=== PATIENT | female | born 1980 | race Two or more races ===

== ENCOUNTER 2016-06-03 09:48 | Emergency (ER) | payer OTHER ==
[~2016-06-03] VITALS: Ht 165.1 cm; Wt 59.0 kg
[~2016-06-03 09:48] MED LIST: CIPRO250 MG ORAL; IBUPROFEN600 MG ORAL; METRONIDAZOLE500 MG ORAL; NKM
--- NOTE | 2016-06-03 10:16 | Emergency Room Report ---
History of Present Illness General Chief Complaint: Female Urogenital Problems Source: Patient Present Illness HPI 35 YO F presents with 2 weeks dysuria, polyuria. Denies fever/chills, flank pain, abd pain, nausea/vomiting/diarrhea. Has had UTI previously, feels similar. Denies discharge. Also endorsing weeks of insomnia, demanding something to help her sleep. Has tried OTC methods already. Denies ETOH, drugs, caffeine. Is exercising, yoga. Understands risks of addiction to benzo. Allergies: Coded Allergies: No Known Allergies (Unverified , 03/25/16) Patient History Past Medical History: other - UTI Past Surgical History: none Pertinent Family History: none Social History: Denies: alcohol use, drug use, smoking Last Menstrual Period: yest Now: No Immunizations: UTD Reviewed Nursing Documentation: PMH: Agreed, PSxH: Agreed Nursing Documentation-PMH Past Medical History: No Stated History Review of Systems All Other Systems: negative except mentioned in HPI Physical Exam Vital Signs Date Time Temp Pulse Resp B/P Pulse Ox O2 Delivery O2 Flow Rate FiO2 06/03/16 09:53 98.1 68 18 92/53 98 Room Air Sp02 EP Interpretation: reviewed, normal General Appearance: normal inspection, well appearing, no apparent distress, alert Head: atraumatic ENT: normal ENT inspection, hearing grossly normal, normal voice Neck: normal inspection, full range of motion, supple, no bony tend Respiratory: normal inspection, lungs clear, normal breath sounds, no respiratory distress, no retraction, no wheezing Cardiovascular #1: regular rate, rhythm, no edema Gastrointestinal: normal inspection, normal bowel sounds, non tender, soft, no guarding, no hernia Genitourinary: no CVA tenderness Musculoskeletal: normal inspection, back normal, normal range of motion, Gio' s Sign negative Neurologic: normal inspection, alert, oriented x3, responsive, file clerk III-XII nml as tested, motor strength/tone normal, speech normal Psychiatric: normal inspection, judgement/insight normal, mood/affect normal Skin: normal inspection, normal color, no rash Medical Decision Making Diagnostic Impression: Primary Impression: Dysuria Additional Impression: Insomnia Qualified Codes: G47.09 - Other insomnia ER Course Dysuria: UA unremarkble. Will Rx Macrobid given symptoms Insomnia: will do trial of low dose ativan 0.5mg at night for 1 week I stressed repeatedly to patient both my concerns for treating a condition like insomnia that should be managed in by a PMD and the potential addictive nature and side effect profile of sleep pills like benzos or ambien but patient is essentially demanding some treatment. Last Vital Signs Date Time Temp Pulse Resp B/P Pulse Ox O2 Delivery O2 Flow Rate FiO2 06/03/16 09:53 98.1 68 18 92/53 98 Room Air Status: improved Disposition: HOME, SELF-CARE Scripts Lorazepam* (ATIVAN*) 0.5 Mg Tablet 0.5 MG ORAL QHS Y for insomnia for 7 Days, #7 TAB Prov: JAMEY NEWBY M.D. 06/03/16 Nitrofurantoin Monohyd/M-Cryst* (MACROBID 100 MG*) 100 Mg Capsule 100 MG ORAL EVERY 12 HOURS for 7 Days, #14 CAP Prov: JAMEY NEWBY M.D. 06/03/16 JAMEY NEWBY M.D. Jun 03, 2016 10:16
[2016-06-03] MEDS ORDERED: ATIVAN0.5 MG ORAL (10:20)
[2016-06-03] MEDS ORDERED: NITROFURANTOIN100 M2 ORAL (10:20)
[2016-06-03 10:45] LABS: APPEARANCE,URINE CLEAR; KETONES,URINE NEGATIVE (NEGATIVE); LEUKOCYTE ESTERASE ,URINE NEGATIVE (NEGATIVE); NITRITE,URINE NEGATIVE (NEGATIVE); PH,URINE 7 (4.5-8.0); PROTEIN,URINE NEGATIVE (NEGATIVE); UROBILINOGEN,URINE NORMAL MG/DL (0.0-1.0)
[2016-06-03 10:55] VITALS: BP 102/65
[2016-06-03 10:58] LABS: BACTERIA,URINE OCCASIONAL /HPF; SQUAMOUS EPITHELIAL CELL,UR OCCASIONAL /LPF (NONE/OCC); WBC,URINE 0-2 /HPF (0 - 2)
== END 2016-06-03 10:55 | disposition home or self-care (01) ==
LOC: EMR 10:19
DX: R30.0 Dysuria (principal); G47.00 Insomnia, unspecified; Z87.440 Personal history of urinary (tract) infections
CPT/HCPCS: 81003; 81025; 99284

== ENCOUNTER 2016-06-05 16:04 | Emergency (ER) | payer OTHER ==
[~2016-06-05] VITALS: Ht 165.1 cm; Wt 59.0 kg
[~2016-06-05 16:04] MED LIST changes: +ATIVAN0.5 MG ORAL; +NITROFURANTOIN100 M2 ORAL
[2016-06-05 16:28] VITALS: BP 107/62
[2016-06-05 17:31] LABS: APPEARANCE,URINE CLEAR; KETONES,URINE NEGATIVE (NEGATIVE); LEUKOCYTE ESTERASE ,URINE NEGATIVE (NEGATIVE); NITRITE,URINE NEGATIVE (NEGATIVE); PROTEIN,URINE NEGATIVE (NEGATIVE); UROBILINOGEN,URINE NORMAL MG/DL (0.0-1.0)
[2016-06-05] MEDS ORDERED: CORTISPORIN EAR10 ML LEFT EAR (17:59)
[2016-06-05 18:10] VITALS: BP 107/62
--- NOTE | 2016-06-05 21:51 | Emergency Room Report ---
History of Present Illness General Chief Complaint: Earache Source: Patient Present Illness HPI The patient is a 35-year-old female presenting with left ear pain which began yesterday. This pain is described as an 8/10 sharp sensation and does not radiate. Pain worse with touch. The patient denies any changes in hearing or discharge. The patient does admit to cleaning out the ear with Q-tips. The patient also admits to increased clear/white vaginal discharge. The patient denies any other symptoms including N, V, F, chills, cough, dysuria , hematuria, flank pain, increased urinary frequency Allergies: Coded Allergies: No Known Allergies (Unverified , 03/25/16) Patient History Past Medical History: see triage record Pertinent Family History: none Last Menstrual Period: 06/04/16 Now: No Reviewed Nursing Documentation: PMH: Agreed, PSxH: Agreed Nursing Documentation-PMH Past Medical History: No Stated History Review of Systems All Other Systems: negative except mentioned in HPI Physical Exam Vital Signs Date Time Temp Pulse Resp B/P Pulse Ox O2 Delivery O2 Flow Rate FiO2 06/05/16 16:22 98.1 66 16 107/62 99 Room Air Sp02 EP Interpretation: reviewed, normal General Appearance: no apparent distress, alert, GCS 15, non-toxic Head: normocephalic, atraumatic Eyes: bilateral eye PERRL, bilateral eye normal inspection ENT: normal voice, uvula midline, moist mucus membranes, tonsillar swelling, pharyngeal erythema, tonsillar exudate, other - L EAC is erythematous and edematous Neck: full range of motion, supple/symm/no masses Respiratory: chest non-tender, lungs clear, normal breath sounds, speaking full sentences Cardiovascular #1: regular rate, rhythm, no edema Gastrointestinal: normal bowel sounds, non tender, soft, non-distended, no guarding, no rebound Musculoskeletal: back normal, gait/station normal, normal range of motion, non- tender Neurologic: alert, oriented x3, responsive, motor strength/tone normal, sensory intact, speech normal Psychiatric: judgement/insight normal, memory normal, mood/affect normal, no suicidal/homicidal ideation Skin: normal color, no rash, warm/dry, well hydrated Lymphatic: no adenopathy Medical Decision Making PA Attestation Dr. Ken is my supervising physician. Patient management was discussed with my supervising physician Diagnostic Impression: Primary Impression: Otitis externa of left ear ER Course The patient is a 35-year-old female presenting with left ear pain which began yesterday Differential diagnosis include but not limited to otitis externa, otitis media, mastoiditis, sinusitis, pharyngitis Differential diagnosis considered but not limited to: UTI, vaginitis, pyelonephritis, PE: vitals WNL. NAD L EAC: erythema and edema. TTP over tragus. TM intact, no erythema. Abd is soft and non tender. Normal BS UA unremarkable. The patient will be treated for otitis externa. Patient told to stop using Q tips. ER precautions are given Laboratory Tests Test 06/05/16 17:05 Urine Color Yellow Urine Appearance Clear Urine pH 6.0 (4.5-8.0) Urine Specific [place] 1.015 (1.005-1.035) Urine Protein Negative (NEGATIVE) Urine Glucose (UA) Negative (NEGATIVE) Urine Ketones Negative (NEGATIVE) Urine Occult Blood Negative (NEGATIVE) Urine Nitrite Negative (NEGATIVE) Urine Bilirubin Negative (NEGATIVE) Urine Urobilinogen Normal MG/DL (0.0-1.0) Urine Leukocyte Esterase Negative (NEGATIVE) Urine HCG, Qualitative Negative Lab Results Impression Unremarkable urinalysis Last Vital Signs Date Time Temp Pulse Resp B/P Pulse Ox O2 Delivery O2 Flow Rate FiO2 06/05/16 16:28 98.1 66 16 107/62 99 Room Air Status: improved Disposition: HOME, SELF-CARE Condition: Improved Scripts Neomycin/Polymyxin B Sulf/Hc* (CORTISPORIN EAR SOLUTION*) 10 Ml Solution 4 DROP LEFT EAR QID, #10 ML 0 Refills Prov: GERARD ANDERSON 06/05/16 Patient Instructions: Otitis Externa Additional Instructions: I discussed my findings with the patient. All questions and concerns have been answered. Treatment and medication compliance have been addressed. I advised the patient that they need to follow up with PMD in 3-5 days. Return to ED if symptoms worsen, new symptoms arise, or if needed for any reason. Patient verbalized understanding of discharge instructions. GERARD ANDERSON Jun 05, 2016 21:51
== END 2016-06-05 18:10 | disposition home or self-care (01) ==
LOC: EMR 17:53
DX: H60.92 Unspecified otitis externa, left ear (principal)
CPT/HCPCS: 81003; 81025; 99283

== ENCOUNTER 2016-07-01 12:41 | Emergency (ER) | payer OTHER ==
[~2016-07-01] VITALS: Ht 165.1 cm; Wt 59.0 kg
[~2016-07-01 12:41] MED LIST changes: +CORTISPORIN EAR10 ML LEFT EAR
[2016-07-01] MEDS ORDERED: METROGEL60 GM TP (13:17)
[2016-07-01 13:25] VITALS: BP 105/68
[2016-07-01 13:28] LABS: APPEARANCE,URINE SLIGHTLY CLOUDY; KETONES,URINE NEGATIVE (NEGATIVE); LEUKOCYTE ESTERASE ,URINE 1+ (NEGATIVE); NITRITE,URINE POSITIVE (NEGATIVE); PH,URINE 8 (4.5-8.0); PROTEIN,URINE NEGATIVE (NEGATIVE); UROBILINOGEN,URINE NORMAL MG/DL (0.0-1.0)
[2016-07-01] MEDS ORDERED: ZYRTEC10 MG ORAL (13:28)
[2016-07-01 13:41] LABS: BACTERIA,URINE MODERATE /HPF; RBC,URINE 0-2 /HPF (0 - 2); SQUAMOUS EPITHELIAL CELL,UR FEW /LPF (NONE/OCC)
--- NOTE | 2016-07-01 15:02 | Emergency Room Report ---
History of Present Illness General Chief Complaint: Female Urogenital Problems Source: Patient Present Illness HPI Patient is a 35-year-old female who presented after having increased dysuria and discharge. Patient reported having a fishy odor. She denied any severe abdominal pain. She gradual onset of symptoms. Patient denied any fever. Patient recently been treated for urinary tract infection with Macrobid. She had not been vomiting. Allergies: Coded Allergies: No Known Allergies (Unverified , 03/25/16) Patient History Past Medical History: see triage record Last Menstrual Period: 06/30/2016 Reviewed Nursing Documentation: PMH: Agreed, PSxH: Agreed Nursing Documentation-PMH Past Medical History: No Stated History Review of Systems All Other Systems: negative except mentioned in HPI Physical Exam Vital Signs Date Time Temp Pulse Resp B/P Pulse Ox O2 Delivery O2 Flow Rate FiO2 07/01/16 12:52 97.3 77 16 105/68 99 Room Air Sp02 EP Interpretation: reviewed, normal General Appearance: normal inspection, well appearing, no apparent distress, alert, GCS 15, non-toxic Head: atraumatic ENT: normal ENT inspection, hearing grossly normal, normal voice Neck: normal inspection, full range of motion, supple, no bony tend Respiratory: normal inspection, lungs clear, normal breath sounds, no respiratory distress, no retraction, no wheezing Cardiovascular #1: regular rate, rhythm, no edema Gastrointestinal: normal inspection, normal bowel sounds, non tender, soft, no guarding, no hernia Genitourinary: no CVA tenderness Musculoskeletal: normal inspection, back normal, normal range of motion Neurologic: normal inspection, alert, oriented x3, responsive, senior construction project manager III-XII nml as tested, speech normal Psychiatric: normal inspection, judgement/insight normal, mood/affect normal Skin: normal inspection, normal color, no rash Medical Decision Making Diagnostic Impression: Primary Impression: BV (bacterial vaginosis) Additional Impression: Seasonal allergies ER Course Patient presented for vaginal odor. 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 Patient declined pelvic exam. Urine test was negative.The patient is advised to follow up with primary care doctor in 1- 2 days. Patient is advised to return if any worsening condition or if any changes in status that are concerning. Labs Test 07/01/16 12:59 Urine Color Pale yellow Urine Appearance Slightly cloudy Urine pH 8 (4.5-8.0) Urine Specific [place] 1.010 (1.005-1.035) Urine Protein Negative (NEGATIVE) Urine Glucose (UA) Negative (NEGATIVE) Urine Ketones Negative (NEGATIVE) Urine Occult Blood 1+ (NEGATIVE) Urine Nitrite Positive (NEGATIVE) Urine Bilirubin Negative (NEGATIVE) Urine Urobilinogen Normal MG/DL (0.0-1.0) Urine Leukocyte Esterase 1+ (NEGATIVE) Urine RBC 0-2 /HPF (0 - 2) Urine WBC 2-4 /HPF (0 - 2) Urine Squamous Epithelial Cells Few /LPF (NONE/OCC) Urine Bacteria Moderate /HPF (NONE) Urine HCG, Qualitative Negative Last Vital Signs Date Time Temp Pulse Resp B/P Pulse Ox O2 Delivery O2 Flow Rate FiO2 07/01/16 13:25 97.3 16 105/68 99 Room Air 07/01/16 12:52 77 Status: improved Disposition: HOME, SELF-CARE Condition: Stable Scripts Cetirizine Hcl* (ZYRTEC*) 10 Mg Tablet 10 MG ORAL DAILY for nasal congestion, #30 TAB 0 Refills Prov: Dion Ken 07/01/16 Metronidazole (METROGEL) 60 Gm Gel..gram. 60 GM TP TWICE A DAY, #60 GM Prov: Dion Ken 07/01/16 Referrals: NOT CHOSEN IPA/,REFERRING (PCP) Patient Instructions: Vaginitis Dion Ken Jul 01, 2016 15:02
== END 2016-07-01 13:25 | disposition home or self-care (01) ==
LOC: EMR 13:16
DX: N76.0 Acute vaginitis (principal); J30.2 Other seasonal allergic rhinitis
CPT/HCPCS: 81003; 81025; 87086; 87181; 99284

== ENCOUNTER 2016-07-28 16:52 | Emergency (ER) | payer OTHER ==
[~2016-07-28] VITALS: Ht 165.1 cm; Wt 59.0 kg
[~2016-07-28 16:52] MED LIST changes: +METROGEL60 GM TP; +ZYRTEC10 MG ORAL
[2016-07-28 17:14] VITALS: BP 92/61
[2016-07-28 17:54] LABS: APPEARANCE,URINE CLEAR; KETONES,URINE NEGATIVE (NEGATIVE); LEUKOCYTE ESTERASE ,URINE 3+ (NEGATIVE); NITRITE,URINE NEGATIVE (NEGATIVE); PH,URINE 7 (4.5-8.0); PROTEIN,URINE NEGATIVE (NEGATIVE); UROBILINOGEN,URINE NORMAL MG/DL (0.0-1.0)
[2016-07-28 18:13] VITALS: BP 113/67
[2016-07-28] MEDS ORDERED: CEPHALEXIN500 MG ORAL (18:15)
[2016-07-28 18:23] LABS: RBC,URINE 0-2 /HPF (0 - 2)
[2016-07-28 18:24] LABS: BACTERIA,URINE OCCASIONAL /HPF; SQUAMOUS EPITHELIAL CELL,UR OCCASIONAL /LPF (NONE/OCC)
--- NOTE | 2016-07-28 20:26 | Emergency Room Report ---
History of Present Illness General Chief Complaint: Female Urogenital Problems Source: Patient Present Illness [facility] The patient is a 36-year-old female with a history of frequent urinary tract infections presenting for dysuria and increased urinary frequency for the past week. Patient states pain is a 4/10 burning sensation which occurs only with urination. Pain does not radiate. Patient denies any vaginal discharge, hematuria, flank pain, abdominal pain, nausea, vomiting, fever, chills Allergies: Coded Allergies: No Known Allergies (Unverified , 03/25/16) Patient History Past Medical History: see triage record Pertinent Family History: none Last Menstrual Period: 07/05/16 Now: No Reviewed Nursing Documentation: PMH: Agreed, PSxH: Agreed Nursing Documentation-PMH Past Medical History: No Stated History Review of Systems All Other Systems: negative except mentioned in HPI Physical Exam Vital Signs Date Time Temp Pulse Resp B/P Pulse Ox O2 Delivery O2 Flow Rate FiO2 07/28/16 17:08 97.9 69 15 92/61 100 Room Air Sp02 EP Interpretation: reviewed, normal General Appearance: no apparent distress, alert, GCS 15, non-toxic Head: normocephalic, atraumatic Eyes: bilateral eye PERRL, bilateral eye normal inspection ENT: hearing grossly normal, normal pharynx, no angioedema, normal voice Neck: full range of motion, supple/symm/no masses Gastrointestinal: normal bowel sounds, non tender, soft, non-distended, no guarding, no rebound Genitourinary: normal inspection, no CVA tenderness Musculoskeletal: back normal, gait/station normal, normal range of motion, non- tender Neurologic: alert, oriented x3, responsive, motor strength/tone normal, sensory intact, speech normal Skin: normal color, no rash, warm/dry, well hydrated Lymphatic: no adenopathy Medical Decision Making PA Attestation Dr. Carrington is my supervising physician. Patient management was discussed with my supervising physician Diagnostic Impression: Primary Impression: Urinary tract infection ER Course The patient is a 36-year-old female Presenting for possible UTI Differential diagnosis considered but not limited to: UTI, vaginitis, pyelonephritis, PID, PE: Vitals WNL. NAD. Abdomen: Normal appearance. Non distended. No ecchymosis. Normal BS. Non TTP. No McBurney point tenderness. No guarding. No CVA tenderness UA: 3+ leukocyte esterase with 2-4 WBCs and few bacteria Neg preg The patient will be discharged home with a prescription for Keflex. The patient is advised that she needs to follow up with [facility] due to recurrent infections. ER precautions are given Laboratory Tests Test 07/28/16 17:12 Urine Color Pale yellow Urine Appearance Clear Urine pH 7 (4.5-8.0) Urine Specific [place] 1.010 (1.005-1.035) Urine Protein Negative (NEGATIVE) Urine Glucose (UA) Negative (NEGATIVE) Urine Ketones Negative (NEGATIVE) Urine Occult Blood Negative (NEGATIVE) Urine Nitrite Negative (NEGATIVE) Urine Bilirubin Negative (NEGATIVE) Urine Urobilinogen Normal MG/DL (0.0-1.0) Urine Leukocyte Esterase 3+ (NEGATIVE) H Urine RBC 0-2 /HPF (0 - 2) Urine WBC 2-4 /HPF (0 - 2) Urine Squamous Epithelial Cells Occasional /LPF Urine Bacteria Occasional /HPF (NONE) Urine HCG, Qualitative Negative Lab Results Impression UA: 3+ leukocyte esterase with 2-4 WBCs and few bacteria Last Vital Signs Date Time Temp Pulse Resp B/P Pulse Ox O2 Delivery O2 Flow Rate FiO2 07/28/16 18:13 97.9 15 113/67 100 Room Air 07/28/16 17:08 69 Status: improved Disposition: HOME, SELF-CARE Condition: Improved Scripts Cephalexin* (KEFLEX*) 500 Mg Capsule 500 MG ORAL EVERY 6 HOURS, #28 CAP Prov: GERARD ANDERSON 07/28/16 Referrals: NOT CHOSEN IPA/MD,REFERRING (PCP) Patient Instructions: Urinary Tract Infection Additional Instructions: I discussed my findings with the patient. All questions and concerns have been answered. Treatment and medication compliance have been addressed. I advised the patient that they need to follow up with PMD in 3-5 days. Return to ED if symptoms worsen, new symptoms arise, or if needed for any reason. Patient verbalized understanding of discharge instructions. The patient is advised that she needs to follow up with [facility] due to the frequency of urinary tract infections GERARD ANDERSON Jul 28, 2016 20:26
== END 2016-07-28 18:23 | disposition home or self-care (01) ==
LOC: EMR 17:35
DX: N39.0 Urinary tract infection, site not specified (principal)
CPT/HCPCS: 81003; 81025; 99283

== ENCOUNTER 2016-08-06 16:55 | Emergency (ER) | payer OTHER ==
[~2016-08-06] VITALS: Ht 165.1 cm; Wt 61.2 kg
[~2016-08-06 16:55] MED LIST changes: +CEPHALEXIN500 MG ORAL
[2016-08-06 17:18] VITALS: BP 105/63
[2016-08-06] MEDS ORDERED: PROMETHAZINE-D118 ML ORAL (17:42)
[2016-08-06] MEDS ORDERED: PROAIR HFA8.5 GM INH (17:42)
[2016-08-06] MEDS ORDERED: ZITHROMAX250 MG ORAL (17:42)
[2016-08-06 17:51] VITALS: BP 105/63
--- NOTE | 2016-08-06 18:50 | Emergency Room Report ---
History of Present Illness General Chief Complaint: Upper Respiratory Illness Source: Patient (GERARD ANDERSON) Present Illness HPI The patient is a 36-year-old female who has a medical history presenting for one week of subjective fevers and persistent cough. The patient denies any sick contacts or recent travel. Patient states that cough is mostly dry but occasionally produces green sputum. The patient has tried [id number] cough medications which have not helped. The patient denies any other symptoms including N, V, night sweats, AMEZQUITA, sore throat, nasal congestion, rash, abd pain , SOB (GERARD ANDERSON) Allergies: Coded Allergies: No Known Allergies (Unverified , 03/25/16) Patient History Past Medical History: see triage record Pertinent Family History: none Last Menstrual Period: 08/05/16 Now: No Reviewed Nursing Documentation: PMH: Agreed, PSxH: Agreed (GERARD ANDERSON) Nursing Documentation-PMH Past Medical History: No Stated History (GERARD ANDERSON) Review of Systems All Other Systems: negative except mentioned in HPI (GERARD ANDERSON) Physical Exam Vital Signs Date Time Temp Pulse Resp B/P Pulse Ox O2 Delivery O2 Flow Rate FiO2 08/06/16 17:12 98.2 69 16 105/63 98 Room Air Sp02 EP Interpretation: reviewed, normal General Appearance: no apparent distress, alert, GCS 15, non-toxic Head: normocephalic, atraumatic Eyes: bilateral eye PERRL, bilateral eye normal inspection ENT: hearing grossly normal, normal pharynx, no angioedema, normal voice Neck: full range of motion, supple/symm/no masses Respiratory: no accessory muscle use, wheezing, other - persistant cough Cardiovascular #1: regular rate, rhythm, no edema Gastrointestinal: normal bowel sounds, non tender, soft, non-distended, no guarding, no rebound Musculoskeletal: back normal, gait/station normal, normal range of motion, non- tender Neurologic: alert, oriented x3, responsive, motor strength/tone normal, sensory intact, speech normal Psychiatric: judgement/insight normal, memory normal, mood/affect normal, no suicidal/homicidal ideation Skin: normal color, no rash, warm/dry, well hydrated Lymphatic: no adenopathy (GERARD ANDERSON) Medical Decision Making PA Attestation Dr. Newby is my supervising physician. Patient management was discussed with my supervising physician (GERARD ANDERSON) Diagnostic Impression: Primary Impression: Bronchitis ER Course The patient is a 36-year-old female who has a medical history presenting for one week of subjective fevers and persistent cough Differential diagnosis include but not limited to pharyngitis, sinusitis, AOM, bronchitis, PNA PE: No apparent distress. afebrile. No TTP over maxillary or frontal sinuses. Lungs CTA bilat. + bilat diffuse wheezing. No accessory muscle use. Heart: RRR, no abnormal heart sounds Ears: external auditory canal clear. Non erythematous. Bilat TM intact. Cone of light present bilat. No bulging of TM. No serous fluid seen. No cervical lymphad No tonsillar exudate. Uvula midline.Oropharynx non erythematous The patient declines any medications in the ER and chest x-ray. The patient will be treated with a prescription for albuterol and cough medication and will FU with PMD. ER precautions given (GERARD ANDERSON) ER Course I evaluated this patient in the ED at [facility] with my advanced practice provider (Physician Thermostat Machine Tender) colleague, who practices under my general supervision. My impressions concur with the advanced practice provider in regards to their obtained history of present illness, physical exam, general management, diagnosis, and disposition. In particular, I agree with PA-obtained interpretation of imaging, rhythm strip. For the evening and overnight shifts, we do not have the benefit of an in-house Radiologist to review xrays so our interpretation may be limited. Patients are to be discharged only with normal vital signs (or if we discussed a particular exception), a plan for follow-up care, and understand to return to the ED for worsening symptoms. Please see midlevel healthcare providers note for further details. (JAMEY NEWBY M.D.) Last Vital Signs Date Time Temp Pulse Resp B/P Pulse Ox O2 Delivery O2 Flow Rate FiO2 08/06/16 17:51 98.2 69 16 105/63 98 Room Air Status: improved (GERARD ANDERSON.[place]) Disposition: HOME, SELF-CARE Condition: Improved Scripts D-Methorphan Hb/Prometh Hcl* (PROMETHAZINE-DM SYRUP*) 118 Ml Syrup 5 ML ORAL Q6H Y for For Cough, #118 ML 0 Refills Prov: GERARD ANDERSON 08/06/16 Albuterol Sulfate* (PROAIR HFA*) 8.5 Gm Hfa.aer.ad 2 PUFFS INH Q6H, #8.5 GM 0 Refills Prov: GERARD ANDERSON 08/06/16 Referrals: NON PHYSICIAN (PCP) Patient Instructions: Acute Bronchitis Additional Instructions: I discussed my findings with the patient. All questions and concerns have been answered. Treatment and medication compliance have been addressed. I advised the patient that they need to follow up with PMD in 3-5 days. Return to ED if pain remains or worsens, cough worsens or remains, you notice blood in your sputum, you notice wheezing, you experience a fever, or if needed for any reason. Patient verbalized understanding of discharge instructions. GERRAD ANDERSON Aug 06, 2016 18:50 JAMEY NEWBY M.D. Aug 07, 2016 14:30
== END 2016-08-06 17:52 | disposition home or self-care (01) ==
LOC: EMR 17:37
DX: J40 Bronchitis, not specified as acute or chronic (principal)
CPT/HCPCS: 99284

== ENCOUNTER 2016-10-13 21:08 | Emergency (ER) | payer OTHER ==
[~2016-10-13] VITALS: Ht 165.1 cm; Wt 56.7 kg
[~2016-10-13 21:08] MED LIST changes: +PROAIR HFA8.5 GM INH; +PROMETHAZINE-D118 ML ORAL; +ZITHROMAX250 MG ORAL
--- NOTE | 2016-10-13 21:29 | Emergency Room Report ---
History of Present Illness General Chief Complaint: Pelvic Pain Source: Patient Present Illness HPI Is a 36-year-old female with no past medical history. Patient said she has not had her menstrual flow for the last month and a half. She check her urine 3 days ago it was positive. She come in because she has some mild suprapubic cramping. Denies any fever chills denies any bleeding. No nausea no vomiting. This is her first . She wanted blood test for confirmation. No history of STD. Allergies: Coded Allergies: No Known Allergies (Unverified , 03/25/16) Patient History Past Medical History: none Past Surgical History: none Pertinent Family History: none Social History: Denies: drug use Last Menstrual Period: 1 month and half Now: Yes Immunizations: other Reviewed Nursing Documentation: PMH: Agreed, PSxH: Agreed Nursing Documentation-PMH Past Medical History: No Stated History Review of Systems Eye: Denies: blurred vision, eye pain ENT: Denies: ear pain, nose congestion, throat swelling Respiratory: Denies: cough, shortness of breath Cardiovascular: Denies: chest pain, palpitations Gastrointestinal: Denies: abdominal pain, diarrhea, nausea, vomiting Musculoskeletal: Denies: back pain, joint pain Skin: Denies: rash Neurological: Denies: headache, numbness Endocrine: Denies: increased thirst, increased urine Hematologic/Lymphatic: Denies: easy bruising All Other Systems: negative except mentioned in HPI Physical Exam Vital Signs Date Time Temp Pulse Resp B/P Pulse Ox O2 Delivery O2 Flow Rate FiO2 10/13/16 21:14 99.1 94 16 101/63 100 Room Air vitals normal Sp02 EP Interpretation: reviewed, normal General Appearance: well appearing, no apparent distress, alert Head: normocephalic, atraumatic Eyes: bilateral eye EOMI, bilateral eye PERRL ENT: hearing grossly normal, normal pharynx Neck: full range of motion, supple, no meningismus Respiratory: chest non-tender, lungs clear, normal breath sounds Cardiovascular #1: regular rate, rhythm, no murmur Gastrointestinal: normal bowel sounds, non tender, no mass, no organomegaly, no bruit, non-distended Musculoskeletal: back normal, gait/station normal, normal range of motion Psychiatric: mood/affect normal Skin: warm/dry Medical Decision Making Diagnostic Impression: Primary Impression: Qualified Codes: Z3A.01 - Less than 8 weeks gestation of ER Course Patient presents with early . Most likely 4-5 weeks based on the hCG level. She has no pain. No bleeding. I doubt that this is an ectopic . She was more concerned getting a blood test for confirmation. We' ll discharge home. Last Vital Signs Date Time Temp Pulse Resp B/P Pulse Ox O2 Delivery O2 Flow Rate FiO2 10/13/16 21:14 99.1 94 16 101/63 100 Room Air Status: unchanged Disposition: HOME, SELF-CARE Condition: Stable Additional Instructions: Followup with your Dr. for referral to see SALES AMBASSADOR. You may also followup with [facility]. Return if having pain or bleeding. DIANA MONTOYA M.D. Oct 13, 2016 21:29
[2016-10-13 21:54] LABS: APPEARANCE,URINE CLEAR; KETONES,URINE 3+ (NEGATIVE); LEUKOCYTE ESTERASE ,URINE NEGATIVE (NEGATIVE); NITRITE,URINE NEGATIVE (NEGATIVE); PH,URINE 7 (4.5-8.0); PROTEIN,URINE 2+ (NEGATIVE); UROBILINOGEN,URINE NORMAL MG/DL (0.0-1.0)
[2016-10-13 22:00] VITALS: BP 101/63
[2016-10-13 22:08] LABS: BACTERIA,URINE FEW /HPF; RBC,URINE 0-2 /HPF (0 - 2); SQUAMOUS EPITHELIAL CELL,UR FEW /LPF (NONE/OCC); WBC,URINE 0-2 /HPF (0 - 2)
[2016-10-13 23:08] VITALS: BP 101/63
== END 2016-10-13 23:08 | disposition home or self-care (01) ==
LOC: EMR 22:09
DX: O26.891 Other specified pregnancy related conditions, first trimester (principal); Z3A.08 8 weeks gestation of pregnancy; R10.30 Lower abdominal pain, unspecified
CPT/HCPCS: 36415; 81003; 81025; 84702; 99283

== ENCOUNTER 2017-01-18 14:37 | Emergency (ER) | payer OTHER ==
[~2017-01-18] VITALS: Ht 162.6 cm; Wt 54.4 kg
[2017-01-18] MEDS ORDERED: Tylenol #3 tab (300mg/30mg) ORAL ONE (15:15)
[2017-01-18 15:50] LABS: KETONES,URINE 1+ (NEGATIVE); LEUKOCYTE ESTERASE ,URINE NEGATIVE (NEGATIVE); NITRITE,URINE NEGATIVE (NEGATIVE); PH,URINE 7 (4.5-8.0); PROTEIN,URINE NEGATIVE (NEGATIVE); UROBILINOGEN,URINE NORMAL MG/DL (0.0-1.0)
[2017-01-18 16:00] LABS: APPEARANCE,URINE CLEAR
[2017-01-18 16:13] VITALS: BP 100/65
[2017-01-18 16:16] VITALS: BP 100/65
[2017-01-18] MEDS ORDERED: TRAMADOL HCL50 MG ORAL (16:35)
--- NOTE | 2017-01-18 16:54 | Diagnostic Imaging Report ---
Indication: Pelvic pain, negative urine test Technique: Transabdominal and transvaginal images Comparison: None Findings: Uterus measures 7.1 cm length by 3.7 cm AP. The endometrium measures 10 mm thick. There are multiple small myometrial fibroids demonstrated, measuring up to 21 mm long axis dimension. The right ovary measures 3.7 cm length. The left ovary measures 4.1 cm length. Within the left ovary, there is a 2.8 cm hemorrhagic follicle. There is free fluid in the cul-de-sac. Impression: Multiple small uterine fibroids 2.8 cm ovarian hemorrhagic follicle Small amount free pelvic fluid
--- NOTE | 2017-01-18 18:42 | Emergency Room Report ---
History of Present Illness General Chief Complaint: Pelvic Pain Source: Patient Present Illness HPI 36-year-old female presents to ED for evaluation. States for the last several days she's been having lower abdominal pain. States pain is a 10/10, throbbing , nonradiating. Patient states pain is worse with sexual intercourse. Denies dysuria or hematuria. Denies vaginal bleeding or discharge. No other aggravating relieving factors. Denies any other associated symptoms Allergies: Coded Allergies: No Known Allergies (Unverified , 03/25/16) Patient History Past Medical History: none Past Surgical History: none Pertinent Family History: none Social History: Denies: smoking, alcohol use, drug use Last Menstrual Period: 12/30/16 Now: No : 1 Para: 0 Immunizations: UTD Reviewed Nursing Documentation: PMH: Agreed, PSxH: Agreed Nursing Documentation-PMH Past Medical History: No Stated History Review of Systems All Other Systems: negative except mentioned in HPI Physical Exam Vital Signs Date Time Temp Pulse Resp B/P (MAP) Pulse Ox O2 Delivery O2 Flow Rate FiO2 01/18/17 14:43 98.2 69 20 100/65 97 Room Air Sp02 EP Interpretation: reviewed, normal General Appearance: no apparent distress, alert, GCS 15, non-toxic Head: normocephalic, atraumatic Eyes: bilateral eye normal inspection, bilateral eye PERRL ENT: hearing grossly normal, normal pharynx, no angioedema, normal voice Neck: full range of motion, supple/symm/no masses Respiratory: chest non-tender, lungs clear, normal breath sounds, speaking full sentences Cardiovascular #1: regular rate, rhythm, no edema Cardiovascular #2: 2+ carotid (R), 2+ carotid (L), 2+ radial (R), 2+ radial (L) , 2+ dorsalis pedis (R), 2+ dorsalis pedis (L) Gastrointestinal: normal bowel sounds, soft, non-distended, no guarding, no rebound, tenderness - suprapubic Rectal: deferred Genitourinary: normal inspection, no CVA tenderness Musculoskeletal: back normal, gait/station normal, normal range of motion, non- tender Neurologic: alert, oriented x3, responsive, motor strength/tone normal, sensory intact, speech normal Psychiatric: judgement/insight normal, memory normal, mood/affect normal, no suicidal/homicidal ideation Reflexes: 3+ bicep (R), 3+ bicep (L), 3+ tricep (R), 3+ tricep (L), 3+ knee (R) , 3+ knee (L) Skin: normal color, no rash, warm/dry, well hydrated Lymphatic: no adenopathy Medical Decision Making Diagnostic Impression: Primary Impression: Fibroids Qualified Codes: D25.9 - Leiomyoma of uterus, unspecified ER Course Hospital Course 36-year-old female presents to ED complaining of lower abdominal pain Differential diagnoses include: gastrits, gastroenterits, ectopic , ovarian torsion/cyst, UTI Clinical course Patient placed on stretcher in ED. After initial history and physical I ordered labs, IV fluids and pain meds and pelvic ultrasound. Labs-no leukocytosis, electrolytes okay, beta hCG negative, UA negative Pelvic ultrasound- fibroids, L ovary hemorrhagic follicle I discussed findings with the patient. Recommend followup with [facility] TECHNICIAN. We'll prescribe pain medication and meanwhile Diagnosis - fibroids Stable and discharged to home with Rx Tramadol. Followup with PMD/[facility] NETWORK TECHNICIAN. Return to ED if symptoms recur or worsen Labs Test 01/18/17 15:00 Urine Color Pale yellow Urine Appearance Clear Urine pH 7 (4.5-8.0) Urine Specific [place] 1.010 (1.005-1.035) Urine Protein Negative (NEGATIVE) Urine Glucose (UA) Negative (NEGATIVE) Urine Ketones 1+ (NEGATIVE) Urine Occult Blood Negative (NEGATIVE) Urine Nitrite Negative (NEGATIVE) Urine Bilirubin Negative (NEGATIVE) Urine Urobilinogen Normal MG/DL (0.0-1.0) Urine Leukocyte Esterase Negative (NEGATIVE) Urine HCG, Qualitative Negative CT/MRI/US Diagnostic Results CT/MRI/US Diagnostic Results : Imaging Test Ordered: Pelvic US Impression multiple small uterine fibroids, 2.8cm ovarian hemorrhagic follicle L ovary. + free fluid Last Vital Signs Date Time Temp Pulse Resp B/P (MAP) Pulse Ox O2 Delivery O2 Flow Rate FiO2 01/18/17 16:16 98.2 68 20 100/65 97 Room Air Status: improved Disposition: HOME, SELF-CARE Condition: Stable Scripts Tramadol Hcl* (ULTRAM*) 50 Mg Tablet 50 MG ORAL Q6H Y for For Pain, #30 TAB 0 Refills Prov: JOSE R PLASCENCIA M.D. 01/18/17 Patient Instructions: Uterine Fibroids, [id number] JOSE R PLASCENCIA M.D. Jan 18, 2017 18:42
== END 2017-01-18 16:39 | disposition home or self-care (01) ==
LOC: EMR 16:00
DX: D25.9 Leiomyoma of uterus, unspecified (principal); R10.2 Pelvic and perineal pain; N94.10 Unspecified dyspareunia
CPT/HCPCS: 76830; 76856; 81003; 81025; 99283

== ENCOUNTER 2017-01-25 13:36 | Emergency (ER) | payer OTHER ==
[~2017-01-25] VITALS: Ht 165.1 cm; Wt 56.7 kg
[~2017-01-25 13:36] MED LIST changes: +TRAMADOL HCL50 MG ORAL
[2017-01-25 14:04] VITALS: BP 105/67
[2017-01-25] MEDS ORDERED: Ketorolac 60mg Inj IM ONE (14:30)
--- NOTE | 2017-01-25 14:41 | Emergency Room Report ---
History of Present Illness General Chief Complaint: Neck Pain Source: Patient Present Illness HPI 36-year-old female presents to the emergency department with acute onset of 10 out of 10 in severity right-sided neck and upper back pain that she describes as tight and sharp in nature. Patient states acute onset after turning her head quickly to the right while in the shower this morning. She denies previous injury to the neck she denies previous episodes of similar symptoms she denies recent illness. Denies nausea , vomiting, or weakness in the upper or lower extremities. Denies headache, fevers, chills, recent spinal procedure, night sweats, history of cancer. Denies appreciable trauma or fall. Denies numbness tingling or loss of sensation or gross motor movements of the extremities, incontinence of bowel or bladder. Denies CP, Palpitations, LOC, AMS , dizziness, Changes in Vision, Sensation, paresthesias, or a sudden severe headache. Allergies: Coded Allergies: No Known Allergies (Unverified , 03/25/16) Patient History Past Medical History: see triage record Past Surgical History: none Last Menstrual Period: 01/25/17 Now: No : 0 Para: 0 Immunizations: UTD Reviewed Nursing Documentation: PMH: Agreed, PSxH: Agreed Nursing Documentation-PMH Past Medical History: No Stated History Review of Systems All Other Systems: negative except mentioned in HPI Physical Exam Vital Signs Date Time Temp Pulse Resp B/P (MAP) Pulse Ox O2 Delivery O2 Flow Rate FiO2 01/25/17 14:04 97.9 73 16 105/67 99 Room Air Sp02 EP Interpretation: reviewed, normal General Appearance: alert, GCS 15, non-toxic, mild distress Head: normocephalic, atraumatic Eyes: bilateral eye normal inspection, bilateral eye PERRL ENT: hearing grossly normal, normal pharynx, no angioedema, normal voice Neck: full range of motion, no bony tend, supple/symm/no masses, tender lateral - Right lateral ttp , ttp to the trapezius. no midline ttp Respiratory: chest non-tender, lungs clear, normal breath sounds, no wheezing, speaking full sentences Cardiovascular #1: regular rate, rhythm, normal capillary refill Rectal: deferred Musculoskeletal: back normal, gait/station normal, normal range of motion, tender - muscular ttp to the trapezius and right upper back and neck, no midline ttp, FROM with pain, no obvious deformities. Neurologic: alert, oriented x3, responsive, motor strength/tone normal, sensory intact, normal gait, speech normal, other - no motor weakness, equal table operator strength Psychiatric: judgement/insight normal, memory normal, mood/affect normal Skin: normal color, no rash, warm/dry, well hydrated Medical Decision Making PA Attestation Dr. corral is my supervising Physician whom patient management has been discussed with. Diagnostic Impression: Primary Impression: Cervical strain, acute Qualified Codes: S16.1XXA - Strain of muscle, fascia and tendon at neck level , initial encounter ER Course Pt. presents to the ED c/o right sided neck pain described as "soreness, and tightness" radiating down to the right shoulder and right scapula x 1 day , onset after turning head quickly in the shower. Ddx considered but are not limited to Fracture, dislocation, contusion, epidural abscess, Sprain/Strain/Spasm Vital signs: are WNL, pt. is afebrile H&PE are most consistent with muscle spasm ORDERS: none required at this time. ED INTERVENTIONS: -Soma PO -Toradol IM DISCHARGE: At this time pt. is stable for d/c to home. Will provide printed patient care instructions, and any necessary prescriptions. Care plan and follow up instructions have been discussed with the patient prior to discharge. Last Vital Signs Date Time Temp Pulse Resp B/P (MAP) Pulse Ox O2 Delivery O2 Flow Rate FiO2 01/25/17 14:04 97.9 73 16 105/67 99 Room Air Disposition: HOME, SELF-CARE Condition: Stable Scripts Cyclobenzaprine Hcl* (FLEXERIL*) 10 Mg Tablet 10 MG ORAL THREE TIMES A DAY for 7 Days, #21 TAB Prov: Willow Rothman P.A. 01/25/17 Ibuprofen* (MOTRIN*) 600 Mg Tablet 600 MG ORAL THREE TIMES A DAY, #30 TAB 0 Refills Prov: Willow Rothman P.A. 01/25/17 Patient Instructions: Muscle Cramps and Spasms, [id number], Muscle Strain, [id number] Additional Instructions: Take medications as directed. Follow up with a Primary Care Provider in 3-5 days, even if your symptoms have resolved. --Please review list of primary care clinics, if you do not already have a primary care provider Return sooner to ED if new symptoms occur, or current symptoms become worse. Do not drink alcohol, drive, or operate heavy machinery while taking Muscle Relaxer: Flexeril as this may cause drowsiness. - Please note that this Emergency Department Report was dictated using [employer] Systemspreparatory technician technology software, occasionally this can lead to erroneous entry secondary to interpretation by the dictation equipment. Willow Rothman Jan 25, 2017 14:41
[2017-01-25] MEDS ORDERED: CYCLOBENZAPRINE10 MG ORAL (14:43)
[2017-01-25] MEDS ORDERED: IBUPROFEN600 MG ORAL (14:43)
[2017-01-25 14:50] VITALS: BP 105/67
== END 2017-01-25 14:50 | disposition home or self-care (01) ==
LOC: EMR 14:09
DX: S16.1XXA Strain of muscle, fascia and tendon at neck level, initial encounter (principal); X50.9XXA Other and unspecified overexertion or strenuous movements or postures, initial encounter; Y93.E1 Activity, personal bathing and showering; Y92.002 Bathroom of unspecified non-institutional (private) residence as the place of occurrence of the external cause
CPT/HCPCS: 96372; 99284

== ENCOUNTER 2017-02-26 05:26 | Emergency (ER) | payer OTHER ==
[~2017-02-26] VITALS: Ht 165.1 cm; Wt 56.7 kg
[~2017-02-26 05:26] MED LIST changes: +CYCLOBENZAPRINE10 MG ORAL
[2017-02-26] MEDS ORDERED: NKM (05:36)
[2017-02-26] MEDS ORDERED: Norco 5mg/325mg tab ORAL ONE (06:00)
[2017-02-26] MEDS ORDERED: IBUPROFEN600 MG ORAL (06:32)
[2017-02-26] MEDS ORDERED: HYDROCODON-ACE1 EA15 ORAL (06:32)
--- NOTE | 2017-02-26 06:32 | Emergency Room Report ---
History of Present Illness General Chief Complaint: Multiple Trauma/Fall Source: Patient Present Illness HPI Is a 36-year-old female who is right-hand dominant. She presents with a fall with multiple injuries. She waswearing high heel and walking up a step. She slipped and fell. She landed on her left shoulder. Complaining of left shoulder pain, left thumb pain and left great toe pain. This occurred about 3- 4 hours prior to arrival. Pain is 9/10. No nausea no vomiting. No fever or chills. Worse with movement. No headache or head injury. Allergies: Coded Allergies: No Known Allergies (Unverified , 03/25/16) Patient History Past Medical History: none, see triage record, old chart reviewed Past Surgical History: none Pertinent Family History: none Social History: Denies: smoking Last Menstrual Period: last week Now: No Immunizations: other Reviewed Nursing Documentation: PMH: Agreed, PSxH: Agreed Nursing Documentation-PMH Past Medical History: No Stated History Review of Systems Eye: Denies: eye pain, blurred vision ENT: Denies: ear pain, nose congestion, throat swelling Respiratory: Denies: cough, shortness of breath Cardiovascular: Denies: chest pain, palpitations Gastrointestinal: Denies: abdominal pain, diarrhea, nausea, vomiting Musculoskeletal: Reports: joint pain, muscle pain, Denies: back pain Skin: Denies: rash Neurological: Denies: headache, numbness Endocrine: Denies: increased thirst, increased urine Hematologic/Lymphatic: Denies: easy bruising All Other Systems: negative except mentioned in HPI Physical Exam Vital Signs Date Time Temp Pulse Resp B/P (MAP) Pulse Ox O2 Delivery O2 Flow Rate FiO2 02/26/17 05:32 83 16 122/71 100 vitals normal Sp02 EP Interpretation: reviewed, normal General Appearance: well appearing, no apparent distress, alert Head: normocephalic, atraumatic Eyes: bilateral eye PERRL, bilateral eye EOMI ENT: hearing grossly normal, normal pharynx Neck: full range of motion, supple, no meningismus Respiratory: chest non-tender, lungs clear, normal breath sounds Cardiovascular #1: regular rate, rhythm, no murmur Gastrointestinal: normal bowel sounds, non tender, no mass, no organomegaly, no bruit, non-distended Musculoskeletal: back normal, gait/station normal, normal range of motion, other - Left shoulder: Tenderness over the medial and anterior aspect the shoulder. Full range of motion. No deformity. Sensation normal. Psychiatric: mood/affect normal Skin: warm/dry Procedures Splinting Splinting #1: Consent: Verbal Location: Left shoulder Pre-Made Type: Sling Pre-Proc Neuro Vasc Exam: normal Post-Proc Neuro Vasc Exam: normal Patient Tolerated: Well Complications: None Splinting #2: Consent: Verbal Location: Left great toe Pre-Made Type: kirtsin-taped Pre-Proc Neuro Vasc Exam: normal Post-Proc Neuro Vasc Exam: normal Patient Tolerated: Well Complications: None Splinting #3: Consent: Verbal Location: left thumb Pre-Made Type: finger metal splint Pre-Proc Neuro Vasc Exam: normal Post-Proc Neuro Vasc Exam: normal Patient Tolerated: Well Complications: None Medical Decision Making Diagnostic Impression: Primary Impression: Contusion of shoulder, left Qualified Codes: S40.012A - Contusion of left shoulder, initial encounter Additional Impressions: Left thumb sprain Qualified Codes: S63.642A - Sprain of metacarpophalangeal joint of left thumb , initial encounter Closed fracture of left great toe Qualified Codes: S92.425A - Nondisplaced fracture of distal phalanx of left great toe, initial encounter for closed fracture ER Course She was soft tissue injury and a small avulsion fracture of the toe. No dislocation. We'll discharge home. Other X-Ray Diagnostic Results Other X-Ray Diagnostic Results #1: X-Ray ordered: Left shoulder # of Views/Limited Vs Complete: 3 View Indication: Pain EP Interpretation: Yes Interpretation: no dislocation, no soft tissue swelling, no fractures Impression: No acute disease Electronically Signed by: Electronically sign by Barry Brooks MD Other X-Ray Diagnostic Results #2: X-Ray ordered: Left thumb # of Views/Limited Vs Complete: 3 View Indication: Pain EP Interpretation: Yes Interpretation: no dislocation, no soft tissue swelling, no fractures Impression: No acute disease Electronically Signed by: Electronically signed by Barry Brooks MD Other X-Ray Diagnostic Results #3: X-Ray ordered: left foot # of Views/Limited Vs Complete: 3 View Indication: Pain EP Interpretation: Yes Interpretation: no dislocation, no soft tissue swelling, other - avulsion frx off base of distal phalanx Impression: Other - distal phal frx. Electronically Signed by: Electronically signed by Barry Brooks MD Last Vital Signs Date Time Temp Pulse Resp B/P (MAP) Pulse Ox O2 Delivery O2 Flow Rate FiO2 02/26/17 05:32 83 16 122/71 100 Status: improved Disposition: HOME, SELF-CARE Condition: Stable Scripts Ibuprofen* (MOTRIN*) 600 Mg Tablet 600 MG ORAL THREE TIMES A DAY, #30 TAB 0 Refills Prov: BARRY BROOKS M.D. 02/26/17 Hydrocodone/Acetaminophen 5-325* (HYDROCODONE/ACETAMINOPHEN 5-325*) 1 Each Tablet 1 TAB ORAL Q6H Y for For Pain, #30 TAB 0 Refills Prov: BARRY BROOKS M.D. 02/26/17 Referrals: NON PHYSICIAN (PCP) Additional Instructions: Ice pack to the area. Followup with your DrMeagan in 7 days. Return if worse. BARRY BROOKS M.D. Feb 26, 2017 06:32
[2017-02-26 06:48] VITALS: BP 122/71
--- NOTE | 2017-02-26 10:28 | Diagnostic Imaging Report ---
History: Left shoulder pain. Technique: Frontal, internal/external rotation and scapular Y. Views of the left shoulder are provided. Comparison: No prior study is available for comparison. Findings: Overall bony mineralization is within normal limits. There is no evidence of acute fracture or dislocation. No significant erosive or arthritic change is noted. The soft tissues appear grossly normal. No significant joint effusion is noted. Impression: No evidence of acute fracture or dislocation.
--- NOTE | 2017-02-26 10:29 | Diagnostic Imaging Report ---
History: Pain. Technique: Frontal, lateral, and oblique views of the left foot are provided. Comparison: No prior study is available for comparison. Findings: Overall bony mineralization is within normal limits. There is no evidence of acute fracture or dislocation. No significant erosive or arthritic change is noted. The soft tissues appear grossly normal. No significant joint effusion is noted. Impression: No evidence of acute fracture or dislocation.
--- NOTE | 2017-02-26 10:30 | Diagnostic Imaging Report ---
History: Pain Technique: Frontal, lateral, and oblique views of the left thumb are provided. Comparison: No prior study is available for comparison. Findings: Overall bony mineralization is within normal limits. There is no evidence of acute fracture or dislocation. No significant erosive or arthritic change is noted. The soft tissues appear grossly normal. No significant joint effusion is noted. Impression: No evidence of acute fracture or dislocation.
== END 2017-02-26 06:50 | disposition home or self-care (01) ==
LOC: EMR 06:15
DX: S40.012A Contusion of left shoulder, initial encounter (principal); S92.422A Displaced fracture of distal phalanx of left great toe, initial encounter for closed fracture; S63.602A Unspecified sprain of left thumb, initial encounter; W01.0XXA Fall on same level from slipping, tripping and stumbling without subsequent striking against object, initial encounter; Y92.89 Other specified places as the place of occurrence of the external cause
CPT/HCPCS: 99284

== ENCOUNTER 2017-05-15 20:44 | Emergency (ER) | payer OTHER ==
[~2017-05-15] VITALS: Ht 165.1 cm; Wt 59.0 kg
[~2017-05-15 20:44] MED LIST changes: +HYDROCODON-ACE1 EA15 ORAL
[2017-05-15 21:01] VITALS: BP 111/74
[2017-05-15 21:06] LABS: APPEARANCE,URINE SLIGHTLY CLOUDY; BILIRUBIN, URINE NEGATIVE (NEGATIVE); COLOR,URINE PALE YELLOW; GLUCOSE, URINE (UA) NEGATIVE (NEGATIVE); KETONES,URINE NEGATIVE (NEGATIVE); LEUKOCYTE ESTERASE ,URINE NEGATIVE (NEGATIVE); NITRITE,URINE NEGATIVE (NEGATIVE); PH,URINE 8 (4.5-8.0); PROTEIN,URINE NEGATIVE (NEGATIVE); UROBILINOGEN,URINE NORMAL MG/DL (0.0-1.0)
[2017-05-15] MEDS ORDERED: METROGEL-VAGINA70 G1 VAGIN (21:19)
[2017-05-15] MEDS ORDERED: METRONIDAZOLE500 MG ORAL (21:25)
[2017-05-15 21:27] VITALS: BP 111/74
--- NOTE | 2017-05-15 21:33 | Emergency Room Report ---
History of Present Illness General Chief Complaint: Female Urogenital Problems Source: Patient Present Illness HPI Patient present with complaints initially of burning with urination Frequency of urination Denies any fevers denies any flank pain Patient is sexually active Denies any nausea vomiting After discussion regarding urine sample findings Patient however does state that she does have some mild discharge as well denies any pelvic pain and complains of some mild irritation as well Allergies: Coded Allergies: No Known Allergies (Unverified , 03/25/16) Patient History Past Medical History: see triage record Pertinent Family History: none Last Menstrual Period: a week ago Now: No : 0 Para: 1 Reviewed Nursing Documentation: PMH: Agreed, PSxH: Agreed Nursing Documentation-PMH Past Medical History: No Stated History Review of Systems All Other Systems: negative except mentioned in HPI Physical Exam Vital Signs Date Time Temp Pulse Resp B/P (MAP) Pulse Ox O2 Delivery O2 Flow Rate FiO2 05/15/17 20:46 99.7 76 18 111/74 98 Room Air Sp02 EP Interpretation: reviewed, normal General Appearance: well appearing, no apparent distress Head: normocephalic, atraumatic ENT: normal pharynx Neck: full range of motion Gastrointestinal: non tender, soft Musculoskeletal: normal inspection Neurologic: alert, oriented x3, responsive Skin: normal color, no rash Lymphatic: no adenopathy Medical Decision Making Diagnostic Impression: Primary Impression: vaginosis ER Course Multiple differentials considered Given the patient's initial presentation urine sample was tested Differential bacterial vaginosis versus PID also considered Clinically the patient does not appear uncomfortable Patient has had several visits with similar complaints I feel that appropriate follow up with gynecology and appropriate testing would be the best course Patient did not have pelvic exam at this time And is clinically diagnosed with vaginosis I did recommend MetroGel vaginally however the patient requested oral medication she was provided with STD clinic followup And recommend also for followup with gynecology Labs Test 05/15/17 20:55 Urine Color Pale yellow Urine Appearance Slightly cloudy Urine pH 8 (4.5-8.0) Urine Specific [place] 1.015 (1.005-1.035) Urine Protein Negative (NEGATIVE) Urine Glucose (UA) Negative (NEGATIVE) Urine Ketones Negative (NEGATIVE) Urine Occult Blood Negative (NEGATIVE) Urine Nitrite Negative (NEGATIVE) Urine Bilirubin Negative (NEGATIVE) Urine Urobilinogen Normal MG/DL (0.0-1.0) Urine Leukocyte Esterase Negative (NEGATIVE) Urine RBC 2-4 /HPF (0 - 2) Urine WBC 2-4 /HPF (0 - 2) Urine Squamous Epithelial Cells Occasional /LPF Urine Bacteria Few /HPF (NONE) Urine HCG, Qualitative Negative Last Vital Signs Date Time Temp Pulse Resp B/P (MAP) Pulse Ox O2 Delivery O2 Flow Rate FiO2 05/15/17 21:27 99.7 18 111/74 98 Room Air 05/15/17 20:46 76 Status: unchanged Disposition: HOME, SELF-CARE Condition: Stable Scripts Metronidazole* (FLAGYL*) 500 Mg Tablet 500 MG ORAL BID, #14 TAB Prov: ROSIE GEORGES D.O. 05/15/17 Metronidazole* (METROGEL-VAGINAL*) 70 Gm Gel.w.appl 1 APPL VAGIN EVERY 12 HOURS for 7 Days, #70 GM Prov: ROSIE GEORGES D.O. 05/15/17 Referrals: NON PHYSICIAN (PCP) Patient Instructions: Vaginitis Additional Instructions: Patient is provided with the discharge instructions notified to follow up with primary doctor in the next 2-3 days otherwise return to the er with any worsening symptoms. Please note that this report is being documented using [employer] technology. This can lead to erroneous entry secondary to incorrect interpretation by the dictating instrument. ROSIE GEORGES D.O. May 15, 2017 21:32
== END 2017-05-15 21:27 | disposition home or self-care (01) ==
LOC: EMR 21:07
DX: N76.0 Acute vaginitis (principal)
CPT/HCPCS: 81003; 81025; 99283

== ENCOUNTER 2017-06-26 20:11 | Emergency (ER) | payer OTHER ==
[~2017-06-26] VITALS: Ht 165.1 cm; Wt 59.0 kg
[~2017-06-26 20:11] MED LIST changes: +METROGEL-VAGINA70 G1 VAGIN
[2017-06-26 20:30] VITALS: BP 124/70
--- NOTE | 2017-06-26 21:09 | Emergency Room Report ---
History of Present Illness General Chief Complaint: Female Urogenital Problems Source: Patient Present Illness HPI This is a 36-year-old female who has a history of kidney stone 2 years ago. She presents with chief complaint of burning sensation when she urinates. His been ongoing for 2 days. No nausea no vomiting. No radiation. No pain. No discharge. Denies any other complaint. Allergies: Coded Allergies: No Known Allergies (Unverified , 03/25/16) Patient History Past Medical History: see triage record, old chart reviewed Past Surgical History: other Pertinent Family History: none Social History: Denies: smoking Last Menstrual Period: 05/26/17 Now: No : 1 Para: 0 Reviewed Nursing Documentation: PMH: Agreed, PSxH: Agreed Nursing Documentation-PMH Past Medical History: No History, Except For Review of Systems Eye: Denies: eye pain, blurred vision ENT: Denies: ear pain, nose congestion, throat swelling Respiratory: Denies: cough, shortness of breath Cardiovascular: Denies: chest pain, palpitations Gastrointestinal: Denies: abdominal pain, diarrhea, nausea, vomiting Genitourinary: Reports: dysuria Musculoskeletal: Denies: back pain, joint pain Skin: Denies: rash Neurological: Denies: headache, numbness Endocrine: Denies: increased thirst, increased urine Hematologic/Lymphatic: Denies: easy bruising All Other Systems: negative except mentioned in HPI Physical Exam Vital Signs Date Time Temp Pulse Resp B/P (MAP) Pulse Ox O2 Delivery O2 Flow Rate FiO2 06/26/17 20:22 98.4 82 20 128/74 98 Room Air 98.4 vital stable Sp02 EP Interpretation: reviewed, normal General Appearance: well appearing, no apparent distress, alert Head: normocephalic, atraumatic Eyes: bilateral eye PERRL, bilateral eye EOMI ENT: hearing grossly normal, normal pharynx Neck: full range of motion, supple, no meningismus Respiratory: chest non-tender, lungs clear, normal breath sounds Cardiovascular #1: regular rate, rhythm, no murmur Gastrointestinal: normal bowel sounds, non tender, no mass, no organomegaly, no bruit, non-distended Musculoskeletal: back normal, gait/station normal, normal range of motion Psychiatric: mood/affect normal Skin: warm/dry Medical Decision Making Diagnostic Impression: Primary Impression: Dysuria ER Course Patient presents with chief complaint of dysuria. Differential diagnoses include UTI, bacterial vaginosis, ectopic, , STD to name a few. Patient said that she cannot stay. She said that she is willing to stay for 5 minutes if that is all it takes. She said that she want us to call her with the results. Explained to the patient that the ER is not a convenience store and that it would take longer than 5 minutes to get the results back. Explained to the patient that the ER to get very easy and we do not have, to track her down and call in prescription. Because of the itchiness, it may be more than just a tract infection. I would need to do a pelvic exam if needed. Patient is comfortable so I do not think she has a kidney stone. Explained to the patient that she go to her primary care Dr. she doesn't want to stay. She is leaving, I would not do lab work or urinalysis. Patient is competent to leave AGAINST MEDICAL ADVICE. She refused to sign the paperwork. Last Vital Signs Date Time Temp Pulse Resp B/P (MAP) Pulse Ox O2 Delivery O2 Flow Rate FiO2 06/26/17 20:22 98.4 82 20 128/74 98 Room Air 98.4 Status: unchanged Disposition: AGAINST MEDICAL ADVICE DIANA MONTOYA M.D. Jun 26, 2017 21:09
[2017-06-26 21:34] VITALS: BP 124/70
[2017-06-26 22:03] LABS: APPEARANCE,URINE CLEAR; BILIRUBIN, URINE NEGATIVE (NEGATIVE); COLOR,URINE PALE YELLOW; GLUCOSE, URINE (UA) NEGATIVE (NEGATIVE); KETONES,URINE NEGATIVE (NEGATIVE); LEUKOCYTE ESTERASE ,URINE NEGATIVE (NEGATIVE); NITRITE,URINE NEGATIVE (NEGATIVE); PH,URINE 7 (4.5-8.0); PROTEIN,URINE NEGATIVE (NEGATIVE); UROBILINOGEN,URINE NORMAL MG/DL (0.0-1.0)
== END 2017-06-26 21:34 | disposition left against medical advice (07) ==
LOC: EMR 21:09
DX: R30.0 Dysuria (principal)
CPT/HCPCS: 81003; 81025; 99282

== ENCOUNTER 2017-07-17 18:16 | Emergency (ER) | payer OTHER ==
[~2017-07-17] VITALS: Ht 165.1 cm; Wt 59.0 kg
[2017-07-17 18:51] LABS: APPEARANCE,URINE CLEAR; BILIRUBIN, URINE NEGATIVE (NEGATIVE); COLOR,URINE PALE YELLOW; GLUCOSE, URINE (UA) NEGATIVE (NEGATIVE); KETONES,URINE NEGATIVE (NEGATIVE); LEUKOCYTE ESTERASE ,URINE 1+ (NEGATIVE); NITRITE,URINE NEGATIVE (NEGATIVE); PH,URINE 7 (4.5-8.0); PROTEIN,URINE NEGATIVE (NEGATIVE); UROBILINOGEN,URINE NORMAL MG/DL (0.0-1.0)
[2017-07-17 18:54] VITALS: BP 105/62
--- NOTE | 2017-07-17 19:19 | Emergency Room Report ---
History of Present Illness General Chief Complaint: Pain Present Illness HPI 36 YO Female complains of episode of 8/10 in severity acute onset flank pain on the right side at 9 AM this morning. Patient is presenting at 7 PM to the ED and states that she has no symptoms currently but wants to be checked out for what she had earlier. Denies fevers, chills. Patient also reports that she took plan B3 times last month. Denies vaginal bleeding or discharge she denies dysuria, hematuria or urinary frequency. Denies N/V. Denies CP, Palpitations, LOC, AMS, dizziness, Changes in Vision, Sensation, paresthesias, or a sudden severe headache. Allergies: Coded Allergies: No Known Allergies (Unverified , 03/25/16) Patient History Past Medical History: see triage record Past Surgical History: none Pertinent Family History: none Now: No Reviewed Nursing Documentation: PMH: Agreed, PSxH: Agreed Review of Systems All Other Systems: negative except mentioned in HPI Physical Exam Vital Signs Date Time Temp Pulse Resp B/P (MAP) Pulse Ox O2 Delivery O2 Flow Rate FiO2 07/17/17 18:26 97.7 78 20 105/62 100 Room Air 97.7 Sp02 EP Interpretation: reviewed, normal General Appearance: no apparent distress, alert, GCS 15, non-toxic Head: normocephalic, atraumatic Eyes: bilateral eye normal inspection, bilateral eye PERRL ENT: hearing grossly normal, normal voice Neck: full range of motion Respiratory: chest non-tender, lungs clear, normal breath sounds, no respiratory distress, no wheezing, speaking full sentences Cardiovascular #1: regular rate, rhythm Gastrointestinal: normal bowel sounds, non tender, soft Rectal: deferred Genitourinary: normal inspection, no CVA tenderness Musculoskeletal: back normal, gait/station normal, normal range of motion, other - some mild ttp to palpation of the right flank area. no CVA tenderness. Neurologic: alert, oriented x3, responsive, motor strength/tone normal, sensory intact, speech normal, grossly normal Psychiatric: judgement/insight normal Skin: normal color, no rash, warm/dry, well hydrated Medical Decision Making PA Attestation Dr. Ochoa is my supervising Physician whom patient management has been discussed with. Diagnostic Impression: Primary Impression: Flank pain, acute ER Course 36 YO Female complains of episode of 8/10 in severity acute onset flank pain on the right side at 9 AM this morning. Patient is presenting at 7 PM to the ED and states that she has no symptoms currently but wants to be checked out for what she had earlier. Denies fevers, chills. Patient also reports that she took plan B3 times last month. Denies vaginal bleeding or discharge she denies dysuria, hematuria or urinary frequency. Denies N/V. Denies CP, Palpitations, LOC, AMS, dizziness, Changes in Vision, Sensation, paresthesias, or a sudden severe headache. Ddx considered but are not limited to Diverticulitis, acute appy, diarrhea,UC, PUD, GE, pancreatitis, gallstone, kidney stone, pyelonephritis, UTI, obstruction. Vital signs: are WNL, pt. is afebrile H&PE are most consistent with muscle strain as she has some mild ttp to palpation of the right flank area. no CVA tenderness. ORDERS: -UA: unremarkable no evidence of stone, cystitis or infection. ED INTERVENTIONS: -- none at this time pt currently asymptomatic DISCHARGE: At this time pt. is stable for d/c to home. Will provide printed patient care instructions, and any necessary prescriptions. Care plan and follow up instructions have been discussed with the patient prior to discharge. Labs Test 07/17/17 18:30 Urine Color Pale yellow Urine Appearance Clear Urine pH 7 (4.5-8.0) Urine Specific [place] 1.010 (1.005-1.035) Urine Protein Negative (NEGATIVE) Urine Glucose (UA) Negative (NEGATIVE) Urine Ketones Negative (NEGATIVE) Urine Occult Blood Negative (NEGATIVE) Urine Nitrite Negative (NEGATIVE) Urine Bilirubin Negative (NEGATIVE) Urine Urobilinogen Normal MG/DL (0.0-1.0) Urine Leukocyte Esterase 1+ (NEGATIVE) Urine RBC 0-2 /HPF (0 - 2) Urine WBC 2-4 /HPF (0 - 2) Urine Squamous Epithelial Cells Few /LPF (NONE/OCC) Urine Bacteria Few /HPF (NONE) Urine HCG, Qualitative Negative (NEGATIVE) Last Vital Signs Date Time Temp Pulse Resp B/P (MAP) Pulse Ox O2 Delivery O2 Flow Rate FiO2 07/17/17 18:54 97.7 70 20 105/62 100 Room Air 97.7 Disposition: HOME, SELF-CARE Condition: Stable Scripts Ibuprofen* (MOTRIN*) 600 Mg Tablet 600 MG ORAL THREE TIMES A DAY, #20 TAB 0 Refills Prov: Willow Rotmhan 07/17/17 Departure Forms: Return to Work Return to Work Date: Jul 19, 2017 Work Restrictions: No Heavy Lifting Other Restrictions: light duty x 1 week. Return to Full Activity: Jul 26, 2017 Patient Instructions: Flank Pain, [id number] Additional Instructions: Take medications as directed. Follow up with a Primary Care Provider in 3-5 days, even if your symptoms have resolved. --Please review list of primary care clinics, if you do not already have a primary care provider Return sooner to ED if new symptoms occur, or current symptoms become worse. - Please note that this Emergency Department Report was dictated using [employer] producer technology software, occasionally this can lead to erroneous entry secondary to interpretation by the dictation equipment. Willow Rothman Jul 17, 2017 19:19
[2017-07-17 19:25] VITALS: BP 110/68
[2017-07-17] MEDS ORDERED: IBUPROFEN600 MG ORAL (19:27)
[2017-07-17 19:30] VITALS: BP 110/68
== END 2017-07-17 19:35 | disposition home or self-care (01) ==
LOC: EMR 19:00
DX: R10.9 Unspecified abdominal pain (principal)
CPT/HCPCS: 81003; 81025; 99283

== ENCOUNTER 2017-08-27 09:23 | Emergency (ER) | payer OTHER ==
[~2017-08-27] VITALS: Ht 165.1 cm; Wt 61.2 kg
[2017-08-27] MEDS ORDERED: FLUCONAZOLE100 MG ORAL (09:36)
[2017-08-27] MEDS ORDERED: ZYRTEC10 MG ORAL (09:57)
[2017-08-27] MEDS ORDERED: CILOXAN 0.3% O1 DROP BOTH EYES (09:57)
--- NOTE | 2017-08-27 10:04 | Emergency Room Report ---
History of Present Illness General Chief Complaint: Eye Problems Source: Patient Present Illness HPI Patient presents with complaints of bilateral eye itching and discharge Started yesterday and has persisted patient also has increased puffiness to both eyelids Denies any fevers or chills she felt a scratching sensation in the left eye denies any visual changes denies any contact use denies any chemical irritation or contact Denies any neck pain or photophobia Allergies: Coded Allergies: No Known Allergies (Unverified , 03/25/16) Patient History Past Medical History: see triage record Pertinent Family History: none Last Menstrual Period: 08/13/17 Reviewed Nursing Documentation: PMH: Agreed; PSxH: Agreed Review of Systems All Other Systems: negative except mentioned in HPI Physical Exam Vital Signs Date Time Temp Pulse Resp B/P (MAP) Pulse Ox O2 Delivery O2 Flow Rate FiO2 08/27/17 09:34 98.5 69 17 96/64 97 Room Air 98.4 Sp02 EP Interpretation: reviewed, normal General Appearance: well appearing, no apparent distress Head: normocephalic, atraumatic Eyes: bilateral eye PERRL, bilateral eye other - Bilateral conjunctival erythema, bilateral upper and lower eyelid swelling and irritation. Clear discharge bilaterally, extraocular motor intact ENT: normal pharynx, no angioedema Neck: supple Musculoskeletal: normal inspection Neurologic: alert, oriented x3, responsive, motor strength/tone normal Skin: other - As above Lymphatic: no adenopathy Medical Decision Making Diagnostic Impression: Primary Impression: conjunctivitis ER Course Patient appears to have a combination of allergic and, bacterial conjunctivitis Patient is treated accordingly initially And stable for close outpatient follow-up Last Vital Signs Date Time Temp Pulse Resp B/P (MAP) Pulse Ox O2 Delivery O2 Flow Rate FiO2 08/27/17 09:34 98.5 69 17 96/64 97 Room Air 98.4 Status: unchanged Disposition: HOME, SELF-CARE Condition: Stable Scripts Ciprofloxacin (Ciprofloxacin HCl) 2.5 Ml Drops 2 DROP BOTH EYES Q4H for 7 Days, #2 ML Prov: David Staley DO 08/27/17 Cetirizine Hcl* (ZYRTEC*) 10 Mg Tablet 10 MG ORAL DAILY, #20 TAB 0 Refills Prov: David Staley DO 08/27/17 Patient Instructions: Bacterial Conjunctivitis, [id number], Allergic Conjunctivitis, [id number] Additional Instructions: Patient is provided with the discharge instructions notified to follow up with primary doctor in the next 2-3 days otherwise return to the er with any worsening symptoms. Please note that this report is being documented using [employer] technology. This can lead to erroneous entry secondary to incorrect interpretation by the dictating instrument. David Staley DO Aug 27, 2017 10:04
[2017-08-27 11:00] VITALS: BP 96/64
== END 2017-08-27 11:00 | disposition home or self-care (01) ==
LOC: EMR 10:15
DX: H10.9 Unspecified conjunctivitis (principal)
CPT/HCPCS: 99284

== ENCOUNTER 2017-11-03 00:24 | Emergency (ER) | payer MEDICAID ==
[~2017-11-03] VITALS: Ht 165.1 cm; Wt 61.2 kg
[~2017-11-03 00:24] MED LIST changes: +CILOXAN 0.3% O1 DROP BOTH EYES; +FLUCONAZOLE100 MG ORAL
[2017-11-03 01:05] VITALS: BP 100/57
--- NOTE | 2017-11-03 01:10 | Emergency Room Report ---
History of Present Illness General Chief Complaint: Female Urogenital Problems Source: Patient Present Illness HPI Is a 37-year-old female with no past medical history. She get recurrent UTI. She presents with chief point of kidney pain and older to vaginal discharge in her underwear. She complaining of lower back pain ongoing for last couple days. No dysuria frequency. No hematuria. She douched regularly. She said she also takes shower 3 times a day and wants to vaginal area area and denies any other complaint. Allergies: Coded Allergies: No Known Allergies (Unverified , 03/25/16) Patient History Past Medical History: see triage record, old chart reviewed Past Surgical History: none Pertinent Family History: none Social History: Denies: smoking Last Menstrual Period: 10/2017 Now: No Immunizations: other Reviewed Nursing Documentation: PMH: Agreed; PSxH: Agreed Nursing Documentation-PMH Past Medical History: No History, Except For Review of Systems Eye: Denies: eye pain, blurred vision ENT: Denies: ear pain, nose congestion, throat swelling Respiratory: Denies: cough, shortness of breath Cardiovascular: Denies: chest pain, palpitations Gastrointestinal: Denies: abdominal pain, diarrhea, nausea, vomiting Genitourinary: Reports: discharge Musculoskeletal: Reports: back pain; Denies: joint pain Skin: Denies: rash Neurological: Denies: headache, numbness Endocrine: Denies: increased thirst, increased urine Hematologic/Lymphatic: Denies: easy bruising All Other Systems: negative except mentioned in HPI Physical Exam Vital Signs Date Time Temp Pulse Resp B/P (MAP) Pulse Ox O2 Delivery O2 Flow Rate FiO2 11/03/17 00:38 98.9 76 16 100/57 96 Room Air 99.0 vitals normal Sp02 EP Interpretation: reviewed, normal General Appearance: well appearing, no apparent distress, alert Head: normocephalic, atraumatic Eyes: bilateral eye PERRL, bilateral eye EOMI ENT: hearing grossly normal, normal pharynx Neck: full range of motion, supple, no meningismus Respiratory: chest non-tender, lungs clear, normal breath sounds Cardiovascular #1: regular rate, rhythm, no murmur Gastrointestinal: normal bowel sounds, non tender, no mass, no organomegaly, no bruit, non-distended Genitourinary: other - Pelvic exam: Done with female nurse as prior authorization technician. External exam normal. Internal exam show liquidy whitish discharge. No cervical motion tenderness. No adnexal tenderness. Musculoskeletal: back normal, gait/station normal, normal range of motion Psychiatric: mood/affect normal Skin: warm/dry Medical Decision Making Diagnostic Impression: Primary Impression: Urinary tract infection Qualified Codes: N30.00 - Acute cystitis without hematuria Additional Impression: BV (bacterial vaginosis) ER Course Patient presents with UTI and bacterial vaginosis. No ectopic. No evidence of pyelonephritis. We'll discharge home. She grew out Escherichia coli is pansensitive to follow antibiotics. Last Vital Signs Date Time Temp Pulse Resp B/P (MAP) Pulse Ox O2 Delivery O2 Flow Rate FiO2 11/03/17 00:38 98.9 76 16 100/57 96 Room Air 99.0 Status: unchanged Disposition: HOME, SELF-CARE Condition: Stable Scripts Cephalexin* (KEFLEX*) 500 Mg Capsule 500 MG ORAL TID, #21 CAP Prov: DIANA MONTOYA M.D. 11/03/17 Metronidazole* (FLAGYL*) 500 Mg Tablet 500 MG ORAL BID, #14 TAB Prov: DIANA MONTOYA M.D. 11/03/17 Referrals: NOT CHOSEN IPA/,REFERRING (PCP) Patient Instructions: Urinary Tract Infection, Vaginitis Additional Instructions: Follow-up your doctor in 7 days. Return if worse. Stop douching. DIANA MONTOYA M.D. Nov 03, 2017 01:10
[2017-11-03 01:34] LABS: BILIRUBIN, URINE NEGATIVE (NEGATIVE); COLOR,URINE PALE YELLOW; GLUCOSE, URINE (UA) NEGATIVE (NEGATIVE); KETONES,URINE NEGATIVE (NEGATIVE); NITRITE,URINE NEGATIVE (NEGATIVE); PH,URINE 6 (4.5-8.0); PROTEIN,URINE 1+ (NEGATIVE); UROBILINOGEN,URINE NORMAL MG/DL (0.0-1.0)
[2017-11-03 01:57] LABS: APPEARANCE,URINE CLOUDY; LEUKOCYTE ESTERASE ,URINE 2+ (NEGATIVE)
[2017-11-03] MEDS ORDERED: CEPHALEXIN500 MG ORAL (02:08)
[2017-11-03] MEDS ORDERED: METRONIDAZOLE500 MG ORAL (02:08)
[2017-11-03 02:12] VITALS: BP 101/57
[2017-11-03 02:13] VITALS: BP 100/57
== END 2017-11-03 02:14 | disposition home or self-care (01) ==
LOC: EMR 00:59
DX: N39.0 Urinary tract infection, site not specified (principal); N76.0 Acute vaginitis
CPT/HCPCS: 81003; 81025; 87086; 87210; 99284

== ENCOUNTER 2018-01-13 15:09 | Emergency (ER) | payer MEDICAID ==
[~2018-01-13] VITALS: Ht 165.1 cm; Wt 59.0 kg
[2018-01-13] MEDS ORDERED: CLINDAMYCIN HC150 MG ORAL (15:16)
--- NOTE | 2018-01-13 15:27 | Emergency Room Report ---
History of Present Illness General Chief Complaint: Earache Source: Patient Present Illness HPI patient is a 37-year-old female with no significant past medical history complaining of 3 days of left ear pain with no discharge. Is rating the pain 5 out of on touching the ear. There is slight chills/rhinorrhea/sore throat. Denies excess water exposure. Denies trauma. Allergies: Coded Allergies: No Known Allergies (Unverified , 03/25/16) Patient History Past Medical History: see triage record Now: No Reviewed Nursing Documentation: PMH: Agreed; PSxH: Agreed Nursing Documentation-PMH Past Medical History: No History, Except For Review of Systems All Other Systems: negative except mentioned in HPI Physical Exam Vital Signs Date Time Temp Pulse Resp B/P (MAP) Pulse Ox O2 Delivery O2 Flow Rate FiO2 01/13/18 15:11 98.6 71 17 99/66 99 Room Air 98.6 Sp02 EP Interpretation: reviewed, normal General Appearance: normal inspection, well appearing, no apparent distress, alert, GCS 15 Eyes: bilateral eye normal inspection, bilateral eye PERRL ENT: normal pharynx, no angioedema, normal voice - Tragus tender to palpation erythema of the left external ear canal, TMs + canals normal, other Neck: normal inspection, full range of motion, supple Respiratory: normal inspection, chest non-tender, lungs clear, no wheezing Cardiovascular #1: normal inspection, normal peripheral pulses, regular rate, rhythm, no murmur Gastrointestinal: normal inspection, normal bowel sounds, soft Rectal: deferred Genitourinary: deferred Musculoskeletal: normal inspection, back normal Neurologic: normal inspection, alert, oriented x3 Psychiatric: normal inspection, judgement/insight normal Skin: normal inspection, no rash, warm/dry Lymphatic: normal inspection, no adenopathy Medical Decision Making PA Attestation diagnosis and treatment plans were reviewed and discussed with my supervising physician Diagnostic Impression: Primary Impression: Otitis externa of left ear ER Course patient is a 37-year-old female with no significant past medical history complaining of 3 days of left ear pain with no discharge. Is rating the pain 5 out of on touching the ear. There is slight chills/rhinorrhea/sore throat. Denies excess water exposure. Denies trauma. Ddx considered but are not limited to Otitis externa, otitis media, choleastoma Vital signs: are WNL, pt. is afebrile H&PE are most consistent with left OE ORDERS: ofloxacin otic ED INTERVENTIONS: None required at this time. DISCHARGE: At this time pt. is stable for d/c to home. Will provide printed patient care instructions, and any necessary prescriptions. Care plan and follow up instructions have been discussed with the patient prior to discharge. Last Vital Signs Date Time Temp Pulse Resp B/P (MAP) Pulse Ox O2 Delivery O2 Flow Rate FiO2 01/13/18 15:11 98.6 71 17 99/66 99 Room Air 98.6 Disposition: HOME, SELF-CARE Condition: Stable Scripts Ofloxacin (Ofloxacin) 5 Ml Drops 10 DROP OTIC BID for 7 Days, #40 ML Prov: Sultana Bill 01/13/18 Patient Instructions: Earache, Otitis Externa, [id number]-[id number] Additional Instructions: is medication as diuretics, avoid putting Q-tips in the eye, avoid water exposure if severe pain continues followed by fever and chills presents to emergency room however follow-up with. ENT Sultana Bill Jan 13, 2018 15:27
[2018-01-13] MEDS ORDERED: OFLOXACIN10 ML OTIC (15:31)
[2018-01-13 15:35] VITALS: BP 99/66
== END 2018-01-13 15:35 | disposition home or self-care (01) ==
LOC: EMR 15:20
DX: H60.92 Unspecified otitis externa, left ear (principal)
CPT/HCPCS: 99282

== ENCOUNTER 2018-03-13 12:46 | Emergency (ER) | payer MEDICAID ==
[~2018-03-13] VITALS: Ht 165.1 cm; Wt 63.5 kg
[~2018-03-13 12:46] MED LIST changes: +CLINDAMYCIN HC150 MG ORAL; +OFLOXACIN10 ML OTIC
[2018-03-13 12:52] VITALS: BP 99/61
[2018-03-13] MEDS ORDERED: ALBUTEROL SULF8.5 GM INH (13:12)
[2018-03-13] MEDS ORDERED: TESSALON PERLE100 MG ORAL (13:12)
--- NOTE | 2018-03-13 13:12 | Emergency Room Report ---
History of Present Illness General Chief Complaint: Upper Respiratory Illness Source: Patient Present Illness HPI 37-year-old female patient presents ER complaining of cough past 5 days. Patient reports cough with yellow-green sputum. Denies hemoptysis. Reports cough worse at night. Denies history of ME, stroke, heart disease, asthma. Patient reports history of symptoms in the past, states she was given an inhaler at that time, requesting an inhaler today. Denies fever, chest pain, shortness breath, abdominal pain, vomiting, vision changes. Denies calf pain. Denies recent travel. Allergies: Coded Allergies: No Known Allergies (Unverified , 03/25/16) Patient History Past Medical History: see triage record Now: No Reviewed Nursing Documentation: PMH: Agreed; PSxH: Agreed Review of Systems All Other Systems: negative except mentioned in HPI Physical Exam Vital Signs Date Time Temp Pulse Resp B/P (MAP) Pulse Ox O2 Delivery O2 Flow Rate FiO2 03/13/18 12:52 69 22 Room Air 03/13/18 12:52 98.1 99/61 97 Sp02 EP Interpretation: reviewed, normal General Appearance: well appearing, no apparent distress, alert, GCS 15, non- toxic Head: normocephalic, atraumatic Eyes: bilateral eye normal inspection, bilateral eye PERRL ENT: hearing grossly normal, normal pharynx, no angioedema, normal voice, TMs + canals normal, uvula midline, moist mucus membranes Neck: full range of motion Respiratory: lungs clear, normal breath sounds, no rhonchi, no respiratory distress, no accessory muscle use, no wheezing, speaking full sentences Cardiovascular #1: regular rate, rhythm, no edema Musculoskeletal: back normal, digits/nails normal, gait/station normal, normal range of motion, non-tender, no calf tenderness, Gio's Sign negative Neurologic: alert, oriented x3, responsive, motor strength/tone normal, sensory intact Psychiatric: mood/affect normal Skin: no rash Lymphatic: no adenopathy Medical Decision Making PA Attestation Dr. Hare is my supervising Physician whom patient management has been discussed with. Diagnostic Impression: Primary Impression: Upper respiratory infection ER Course Pt presents to ED c/o cough 5 days. DDX considered but are not limited to influenza, viral URI, pneumonia, ME, strep throat, rhinitis, sinusitis, otitis media, otitis externa. patient denies calf pain, recent travel, control medications, low suspicion for PE. Denies chest pain, SOB, no hx of cardiac disease, does not smoke, do not believe requires cardiac workup at this time. VITAL SIGNS are WNL, patient is afebrile. ER COURSE: Provided with cough medication in ER. Patient declined xray of chest. Lungs clear to auscultation, no wheezes, rhonci or rales. patient afebrile. Low suspicion for pneumonia, will not order CXR at this time. Symptomatic treatment. Followup with PCP for further treatment and/or referral as needed. ER precautions given Will provide patient with albuterol inhaler. Does not require breathing treatment at this time. Patient speaking full sentences, pulse Ox>95. DISCHARGE: -Rx given for albuterol -Rx given for Tessalon Perles At this time pt is stable for d/c to home. Patient is resting comfortably, in no acute distress, nontoxic appearing. Patient to take medications as instructed Will provide with patient care instructions and any necessary prescriptions. Care plan and follow-up instructions provided. Patient instructed to follow-up with primary care provider in 3 - 5 days. Patient questions asked and answered. Patient reports understanding and agreement to treatment plan. ER precautions given. Patient instructed to return to ER immediately for any new or worsening of symptoms including but not limited to increasing SOB, persistent fever, intractable vomiting. - Please note that this Emergency Department Report was dictated using [employer] medical transcriptionist technology software, occasionally this can lead to erroneous entry secondary to interpretation by the dictation equipment. Last Vital Signs Date Time Temp Pulse Resp B/P (MAP) Pulse Ox O2 Delivery O2 Flow Rate FiO2 03/13/18 12:52 98.1 69 22 99/61 97 Room Air Disposition: HOME, SELF-CARE Condition: Stable Scripts Albuterol Sulfate* (ALBUTEROL SULFATE MDI*) 8.5 Gm Hfa.aer.ad 2 PUFF INH Q6H, #1 INH 0 Refills Prov: Paxton Sales P.A. 03/13/18 Benzonatate* (TESSALON PERLE*) 100 Mg Capsule 100 MG ORAL THREE TIMES A DAY, #15 PERLE Prov: Paxton Sales P.A. 03/13/18 Patient Instructions: Upper Respiratory Infection, Adult Additional Instructions: Followup with primary care provider in 3 -5 days. Take medications as directed. Patient questions asked and answered. ER precautions given, patient instructed to return to ER immediately for any new or worsening of symptoms. Paxton Sales Mar 13, 2018 13:12
[2018-03-13] MEDS ORDERED: Benzonatate 100mg Perles ORAL ONE (13:15)
[2018-03-13 13:18] VITALS: BP 105/78
== END 2018-03-13 13:20 | disposition home or self-care (01) ==
LOC: EMR 13:00
DX: J06.9 Acute upper respiratory infection, unspecified (principal)
CPT/HCPCS: 99283

== ENCOUNTER 2018-10-01 00:59 | Emergency (ER) | payer MEDICAID, OTHER ==
[~2018-10-01] VITALS: Ht 165.1 cm; Wt 63.5 kg
[~2018-10-01 00:59] MED LIST changes: +ALBUTEROL SULF8.5 GM INH; +TESSALON PERLE100 MG ORAL
[2018-10-01] MEDS ORDERED: NKM (01:11)
[2018-10-01 01:13] VITALS: BP 92/63
--- NOTE | 2018-10-01 01:14 | NUR ---
ED Nurse Note: PT CAME TO ED FROM HOME C/O OF LIP SWELLNG AND BILATERAL EYE SWELLING. EYE SWELLING DOES NOT DISTURB VISUAL FUNCTION, PT HAS NO RESPIRATORY DISTRESS, AIRWAY CLEAR, PT AOX4. PER PT SWELLNIG BEGAN YESTERDAY MORNING.
[2018-10-01] MEDS ORDERED: DiphenhydrAMINE 25mg/10ml Elixir ORAL ONE (01:30)
[2018-10-01] MEDS ORDERED: BENADRYL ALLERG25 M1 PO (01:31)
[2018-10-01] MEDS ORDERED: PREDNISONE20 MG ORAL (01:31)
[2018-10-01 01:50] VITALS: BP 92/63
--- NOTE | 2018-10-01 01:50 | NUR ---
ER DISCHARGE NOTE: Patient is cleared to be discharged per ERMD, pt is aox4, on room air, with stable vital signs. pt was given dc and prescription instructions, pt was able to verbalize understanding, pt id band removed without complications. pt is able to ambulate with steady gait. pt took all belongings.
--- NOTE | 2018-10-01 02:29 | Emergency Room Report ---
History of Present Illness General Chief Complaint: Allergic Reaction Source: Patient Present Illness HPI Patient is a 38-year-old female presented after increased facial swelling. Patient reports having woken up from sleep and noticed that her face had become more swollen in addition to her lips. She denies any recent cosmetic procedures. She states that she does not take any NSAIDs or blood pressure medications. She denies any fever. She states that she may have been bitten by an insect. She denies any difficulty with breathing. She states she had onset in the morning morning. Allergies: Coded Allergies: No Known Allergies (Unverified , 03/25/16) Patient History Past Medical History: see triage record Last Menstrual Period: 10/01/18 Now: No Reviewed Nursing Documentation: PMH: Agreed; PSxH: Agreed Nursing Documentation-PMH Past Medical History: No Stated History Review of Systems All Other Systems: negative except mentioned in HPI Physical Exam Vital Signs Date Time Temp Pulse Resp B/P (MAP) Pulse Ox O2 Delivery O2 Flow Rate FiO2 10/01/18 01:07 98.1 64 16 92/63 (73) 97 Room Air General Appearance: well appearing, no apparent distress, alert, GCS 15, non- toxic Head: normocephalic, atraumatic Eyes: bilateral eye other - periorbital swelling ENT: hearing grossly normal, no angioedema, normal voice, moist mucus membranes , other - lips swelling Neck: full range of motion, supple Respiratory: lungs clear, no respiratory distress, speaking full sentences Cardiovascular #1: normal inspection, normal peripheral pulses Gastrointestinal: normal inspection Musculoskeletal: normal inspection Neurologic: normal inspection, alert, oriented x3, responsive, log stacker operator III-XII nml as tested, normal gait Psychiatric: mood/affect normal Skin: no rash Medical Decision Making Diagnostic Impression: Primary Impression: Facial swelling ER Course Patient presented for facial swelling. Differential diagnosis include was not limited to allergic reaction, angioedema, nephrotic syndrome, contact dermatitis among others. Patient has a benign exam and does not appear to require any further imaging or laboratory testing at this time. Patient has what appears to be a mild allergic reaction. Patient denies any cosmetic procedures. She is not taking any medications that would suggest angioedema. Patient was given oral Benadryl. She declined oral steroids. Patient was given a prescription for oral steroids if she changed her mind. She was also given prescription for Benadryl. She did not show any evidence of anaphylaxis. Labs Test 10/01/18 01:40 Urine HCG, Qualitative Negative (NEGATIVE) Last Vital Signs Date Time Temp Pulse Resp B/P (MAP) Pulse Ox O2 Delivery O2 Flow Rate FiO2 10/01/18 01:50 98.1 64 16 92/63 97 Room Air Status: improved Disposition: HOME, SELF-CARE Condition: Stable Scripts Prednisone* (PREDNISONE*) 20 Mg Tablet 40 MG ORAL DAILY, #10 TAB Prov: Dion Ken MD 10/01/18 Diphenhydramine Hcl (BENADRYL ALLERGY) 25 Mg Tablet 25 MG PO EVERY 6 HOURS, #30 TAB Prov: Dion Ken MD 10/01/18 Referrals: NOT CHOSEN [facility]/,REFERRING Patient Instructions: Allergies Dion Ken MD Oct 01, 2018 02:29
== END 2018-10-01 01:51 | disposition home or self-care (01) ==
LOC: EMR 01:18
DX: R22.0 Localized swelling, mass and lump, head (principal)
CPT/HCPCS: 81025; 99282; J7512

== ENCOUNTER 2018-12-08 19:46 | Emergency (ER) | payer OTHER ==
[~2018-12-08] VITALS: Ht 165.1 cm; Wt 63.5 kg
[~2018-12-08 19:46] MED LIST changes: +BENADRYL ALLERG25 M1 PO; +PREDNISONE20 MG ORAL
--- NOTE | 2018-12-08 20:21 | Emergency Room Report ---
History of Present Illness General Chief Complaint: Medication refill Source: Patient, Medical Record Present Illness HPI 38-year-old female resents with cold sore x1 day, requesting medication, she endorses the cold sore as sharp aching in nature, no aggravating or relieving factors, severity is mild, no fevers no chills no chest pain no shortness of breath, patient is also requesting a refill of her eyedrops, she has no changes in vision no dizziness no headache. Patient presents for medication refill as well for her Bimatoprost, she has an optho Allergies: Coded Allergies: No Known Allergies (Unverified , 03/25/16) Patient History Last Menstrual Period: 11/2018 Now: No : 0 Para: 0 Physical Exam Vital Signs Date Time Temp Pulse Resp B/P (MAP) Pulse Ox O2 Delivery O2 Flow Rate FiO2 12/08/18 20:07 98.2 72 18 105/69 (81) 97 Room Air Sp02 EP Interpretation: reviewed, normal General Appearance: well appearing, no apparent distress, alert Head: normocephalic, atraumatic Eyes: bilateral eye PERRL, bilateral eye EOMI ENT: uvula midline, moist mucus membranes, other - cold sore bottom lip 1cm Neck: supple, thyroid normal, supple/symm/no masses Respiratory: lungs clear, no respiratory distress, no retraction, no accessory muscle use Cardiovascular #1: normal peripheral pulses, regular rate, rhythm, no edema, no gallop, no murmur Gastrointestinal: non tender, soft, no guarding, no rebound Musculoskeletal: normal inspection Neurologic: alert, oriented x3 Psychiatric: mood/affect normal Skin: no rash, warm/dry Medical Decision Making Diagnostic Impression: Primary Impression: Medication refill Additional Impression: Herpes labialis without complication ER Course Patient with cold sore, will provide patient with acyclovir Patient also requesting refill for eye medication, she states she has an optho but cant see him until 1 week. Has no visual complaints. Will refill Bimatoprost Last Vital Signs Date Time Temp Pulse Resp B/P (MAP) Pulse Ox O2 Delivery O2 Flow Rate FiO2 12/08/18 20:07 98.2 72 18 105/69 (81) 97 Room Air Disposition: HOME, SELF-CARE Condition: Stable Scripts Bimatoprost (LUMIGAN) 2.5 Ml Drops 1 DROP BOTH EYES DAILY, #2.5 ML 0 Refills Prov: Vitaliy Devries MD 12/08/18 Acyclovir* (ACYCLOVIR*) 400 Mg Tablet 400 MG ORAL FIVE TIMES A DAY for 5 Days, #20 TAB Prov: Vitaliy Devries MD 12/08/18 Referrals: [facility]. [facility] Patient Instructions: Cold Sore, [id number], Medicine Refill at the Emergency Department Additional Instructions: The patient was provided with discharge instructions, notified to follow-up with a primary care doctor and or specialist in the next 24-48 hours, and to return to the ED if they have worsening of their symptoms. Please note that this report is being documented using [employer] technology. This can lead to erroneous entry secondary to incorrect interpretation by the dictating instrument. Vitaliy Devries MD Dec 08, 2018 20:21
[2018-12-08] MEDS ORDERED: LUMIGAN2.5 ML BOTH EYES (20:27)
[2018-12-08] MEDS ORDERED: ACYCLOVIR400 MG ORAL (20:27)
[2018-12-08 20:35] VITALS: BP 105/69
[2018-12-08 20:45] VITALS: BP 105/69
== END 2018-12-08 23:00 | disposition home or self-care (01) ==
LOC: EMR 22:35
DX: B00.1 Herpesviral vesicular dermatitis (principal); Z76.0 Encounter for issue of repeat prescription
CPT/HCPCS: 99282

== ENCOUNTER 2019-01-25 09:25 | Emergency (ER) | payer OTHER ==
[~2019-01-25] VITALS: Ht 165.1 cm; Wt 61.7 kg
[~2019-01-25 09:25] MED LIST changes: +ACYCLOVIR400 MG ORAL; +LUMIGAN2.5 ML BOTH EYES
[2019-01-25] MEDS ORDERED: NKM (09:37)
[2019-01-25 09:55] LABS: APPEARANCE,URINE CLOUDY; BILIRUBIN, URINE NEGATIVE (NEGATIVE); COLOR,URINE PALE YELLOW; GLUCOSE, URINE (UA) NEGATIVE (NEGATIVE); KETONES,URINE NEGATIVE (NEGATIVE); LEUKOCYTE ESTERASE ,URINE 3+ (NEGATIVE); NITRITE,URINE NEGATIVE (NEGATIVE); PH,URINE 7 (4.5-8.0); PROTEIN,URINE 2+ (NEGATIVE); UROBILINOGEN,URINE NORMAL MG/DL (0.0-1.0)
--- NOTE | 2019-01-25 10:00 | NUR ---
ED Nurse Note:pt. c/o vaginal discharge, urine and smear was sent to labs, vaginal exam was done by ER MD in my presence
[2019-01-25 10:08] VITALS: BP 97/62
[2019-01-25] MEDS ORDERED: LUMIGAN2.5 ML BOTH EYES (10:56)
[2019-01-25] MEDS ORDERED: CEPHALEXIN500 MG ORAL (10:57)
[2019-01-25] MEDS ORDERED: METRONIDAZOLE500 MG ORAL (10:57)
[2019-01-25] MEDS ORDERED: FLUCONAZOLE100 MG ORAL (10:57)
--- NOTE | 2019-01-25 11:00 | NUR ---
ER DISCHARGE NOTE: Patient is cleared to be discharged per ERMD, pt is aox4, on room air, with stable vital signs. pt was given dc and prescription instructions, pt was able to verbalize understanding, pt is able to ambulate with steady gait. pt took all belongings.
[2019-01-25 11:08] VITALS: BP 97/62
--- NOTE | 2019-01-25 14:02 | Emergency Room Report ---
History of Present Illness General Chief Complaint: Pelvic Pain Source: Patient Present Illness HPI 38-year-old female presents ED for evaluation. Patient complaining of vaginal discharge since yesterday. States it is white in nature, foul-smelling. Denies any dysuria or hematuria. Denies any abdominal pain. Denies any recent unprotected sex. States she is been here several times for similar presentation. No other aggravating relieving factors. Denies any other associated symptoms Allergies: Coded Allergies: No Known Allergies (Unverified , 03/25/16) Patient History Past Medical History: none Past Surgical History: none Pertinent Family History: none Social History: Denies: smoking, alcohol use, drug use Last Menstrual Period: 1 week ago Now: No Immunizations: UTD Reviewed Nursing Documentation: PMH: Agreed; PSxH: Agreed Nursing Documentation-PMH Past Medical History: No Stated History Review of Systems All Other Systems: negative except mentioned in HPI Physical Exam Vital Signs Date Time Temp Pulse Resp B/P (MAP) Pulse Ox O2 Delivery O2 Flow Rate FiO2 01/25/19 09:34 98.1 61 16 93/61 (72) 97 Room Air Sp02 EP Interpretation: reviewed, normal General Appearance: no apparent distress, alert, GCS 15, non-toxic Head: normocephalic Eyes: bilateral eye normal inspection, bilateral eye PERRL ENT: normal ENT inspection Neck: normal inspection Respiratory: normal inspection Cardiovascular #1: normal inspection Gastrointestinal: normal bowel sounds, non tender, soft, non-distended, no guarding, no rebound Rectal: deferred Genitourinary: other - manipulator operator present. white discharge noted Musculoskeletal: back normal, gait/station normal, normal range of motion, non- tender Neurologic: alert, oriented x3, responsive, motor strength/tone normal, sensory intact, speech normal Psychiatric: normal inspection Skin: no rash Lymphatic: normal inspection Medical Decision Making Diagnostic Impression: Primary Impression: Urinary tract infection Qualified Codes: N39.0 - Urinary tract infection, site not specified Additional Impression: BV (bacterial vaginosis) ER Course Hospital Course 38-year-old female presents ED with discharge. Differential diagnoses include: trichimonas, gonorrhea, chlamydia Clinical course Patient placed on stretcher. After initial history physical exam reveals a female in no acute distress. Collision Mechanic present. There is white discharge on exam. Wet mount collected. No CMT UA + bacteria, wet mount negative For there is clinical concern for BV so we will treat accordingly. Given patient has had multiple presentations for this we recommend outpatient evaluation by FLATWORK FINISHER [employer]. States she will make an appointment Diagnosis - UTI, Bacterial vaginosis Stable and discharged home with prescriptions for Rx diflucan, flagyl, keflex. Instructed to followup with PMD. Return to ED if symptoms recur or worsen Labs Test 01/25/19 09:35 Urine Color Pale yellow Urine Appearance Cloudy Urine pH 7 (4.5-8.0) Urine Specific [place] 1.015 (1.005-1.035) Urine Protein 2+ (NEGATIVE) Urine Glucose (UA) Negative (NEGATIVE) Urine Ketones Negative (NEGATIVE) Urine Blood 2+ (NEGATIVE) Urine Nitrite Negative (NEGATIVE) Urine Bilirubin Negative (NEGATIVE) Urine Urobilinogen Normal MG/DL (0.0-1.0) Urine Leukocyte Esterase 3+ (NEGATIVE) Urine RBC 5-10 /HPF (0 - 2) Urine WBC 15-20 /HPF (0 - 2) Urine Squamous Epithelial Cells Many /LPF (NONE/OCC) Urine Amorphous Sediment Many /LPF (NONE) Urine Bacteria Moderate /HPF (NONE) Urine HCG, Qualitative Negative (NEGATIVE) Last Vital Signs Date Time Temp Pulse Resp B/P (MAP) Pulse Ox O2 Delivery O2 Flow Rate FiO2 01/25/19 11:08 98.1 69 16 97/62 97 Room Air Status: improved Disposition: HOME, SELF-CARE Condition: Stable Scripts Fluconazole (FLUCONAZOLE) 100 Mg Tablet 100 MG ORAL DAILY, #3 TAB 0 Refills Prov: Ancelmo Carrington MD 01/25/19 Metronidazole* (FLAGYL*) 500 Mg Tablet 500 MG ORAL BID, #14 TAB Prov: Ancelmo Carrington MD 01/25/19 Cephalexin* (KEFLEX*) 500 Mg Capsule 500 MG ORAL EVERY 6 HOURS for 7 Days, CAP Prov: Ancelmo Carrington MD 01/25/19 Bimatoprost (LUMIGAN) 2.5 Ml Drops 1 DROP BOTH EYES DAILY, #2.5 ML 0 Refills Prov: Ancelmo Carrington MD 01/25/19 Referrals: [facility],REFER (PCP) Patient Instructions: Bacterial Vaginosis, [id number] Ancelmo Carrington MD Jan 25, 2019 14:02
== END 2019-01-25 11:10 | disposition home or self-care (01) ==
LOC: EMR 09:46
DX: N76.0 Acute vaginitis (principal); N39.0 Urinary tract infection, site not specified
CPT/HCPCS: 81003; 81025; 87086; 87210; Z7502; 99283

== ENCOUNTER 2019-03-23 14:41 | Emergency (ER) | payer MEDICAID, OTHER ==
[~2019-03-23] VITALS: Ht 165.1 cm; Wt 61.2 kg
[2019-03-23] MEDS ORDERED: MULTIVITAMINS1 EAC2 ORAL (14:52)
--- NOTE | 2019-03-23 15:07 | Emergency Room Report ---
History of Present Illness General Chief Complaint: Pelvic Pain Source: Patient Present Illness HPI 38-year-old female with no significant past medical history other than recurrences of yeast infection and bacterial vaginosis here complaining of another onset of vaginal discharge. Describing it as foul odorous,white discharge. reports that has an upcoming appointment with her monument letterer due to recurrent infection. Patient is not sexually active. Denies dysuria and urinary symptoms. Reports that fluconazole and metronidazole usually works for her denies this diffuse abdominal pain, nausea vomiting, fever and chills. Last menstrual period was 1 week ago and regular Allergies: Coded Allergies: No Known Allergies (Unverified , 03/25/16) Patient History Past Medical History: see triage record Past Surgical History: unable to obtain Pertinent Family History: none Last Menstrual Period: 1 week ago Now: No Immunizations: UTD Reviewed Nursing Documentation: PMH: Agreed; PSxH: Agreed Nursing Documentation-PMH Past Medical History: No History, Except For Hx Cardiac Problems: No - kidney stones Hx Hypertension: No Hx Pacemaker: No Hx Asthma: No Hx COPD: No Hx Diabetes: No Hx Cancer: No Hx Gastrointestinal Problems: No Hx Dialysis: No History Of Psychiatric Problem: No Hx Neurological Problems: No Hx Cerebrovascular Accident: No Hx Seizures: No Review of Systems All Other Systems: negative except mentioned in HPI Physical Exam Vital Signs Date Time Temp Pulse Resp B/P (MAP) Pulse Ox O2 Delivery O2 Flow Rate FiO2 03/23/19 14:49 98.2 66 18 101/66 (78) 99 Room Air Sp02 EP Interpretation: reviewed, normal General Appearance: no apparent distress, alert, GCS 15, non-toxic Head: normocephalic, atraumatic Eyes: bilateral eye normal inspection, bilateral eye PERRL ENT: hearing grossly normal, normal pharynx, no angioedema, normal voice Neck: full range of motion, supple/symm/no masses Respiratory: chest non-tender, lungs clear, normal breath sounds, speaking full sentences Cardiovascular #1: regular rate, rhythm, no edema Gastrointestinal: normal bowel sounds, non tender, soft, non-distended, no guarding, no rebound Rectal: deferred Genitourinary: no CVA tenderness Musculoskeletal: back normal, decreased range of motion, normal range of motion Neurologic: alert, motor strength/tone normal, oriented x3, sensory intact, responsive, speech normal Psychiatric: judgement/insight normal, memory normal, mood/affect normal, no suicidal/homicidal ideation Skin: no rash Lymphatic: no adenopathy Medical Decision Making PA Attestation All diagnoses and treatment plans were reviewed and discussed with my supervising physician Dr. Sanon Diagnostic Impression: Primary Impression: Vaginitis ER Course 38-year-old female with no significant past medical history other than recurrences of yeast infection and bacterial vaginosis here complaining of another onset of vaginal discharge. Describing it as foul odorous, white discharge. reports that has an upcoming appointment with her monument letterer due to recurrent infection. Patient is not sexually active. Denies dysuria and urinary symptoms. Reports that fluconazole and metronidazole usually works for her denies this diffuse abdominal pain, nausea vomiting, fever and chills. Last menstrual period was 1 week ago and regular Ddx considered but are not limited to: vaginitis, yeast infection, BV, chlamydia , Gonorrhea, syphilis, HIV, herpes 1 or 2 Vital signs: are WNL, pt. is afebrile H&PE are most consistent with : Vaginitis most likely secondary to yeast infection and bacterial vaginosis ORDERS: Patient refuses to be tested for sexually transmitted diseases and only requesting fluconazole for 7-day supply specifically as it is usually her regimen and metronidazole. Patient will follow with her monument letterer due to slight amount of pelvic pain that she has been experiencing with vaginal discharge however has no pain right now. We will do ultrasound per recommendation. I wrote for Flagyl and Diflucan ED INTERVENTIONS: None required at this time. DISCHARGE: At this time pt. is stable for d/c to home. Will provide printed patient care instructions, and any necessary prescriptions. Care plan and follow up instructions have been discussed with the patient prior to discharge. Patient refused to be tested for sexually transmitted diseases and pelvic ultrasound Last Vital Signs Date Time Temp Pulse Resp B/P (MAP) Pulse Ox O2 Delivery O2 Flow Rate FiO2 03/23/19 14:49 98.2 66 18 101/66 (78) 99 Room Air Disposition: HOME, SELF-CARE Condition: Stable Scripts Fluconazole (FLUCONAZOLE) 100 Mg Tablet 100 MG ORAL DAILY for 7 Days, #7 TAB 0 Refills Prov: Sultana Bill 03/23/19 Metronidazole* (FLAGYL*) 500 Mg Tablet 500 MG ORAL BID for 7 Days, #14 TAB Prov: Sultana Bill 03/23/19 Patient Instructions: Pelvic Pain, Female, Vaginitis, [id number] Additional Instructions: Follow-up with your monument letterer due to recurrent yeast infection and bacterial vaginosis infection. If worsening symptoms return to the emergency room Sultana Bill Mar 23, 2019 15:07
[2019-03-23] MEDS ORDERED: METRONIDAZOLE500 MG ORAL (15:08)
[2019-03-23] MEDS ORDERED: FLUCONAZOLE100 MG ORAL (15:08)
--- NOTE | 2019-03-23 15:21 | NUR ---
Patient was evaluated, treated and discharged with aftercare instructions by MD/PA
[2019-03-23 15:22] VITALS: BP 101/66
== END 2019-03-23 15:16 | disposition home or self-care (01) ==
LOC: EMR 15:14
DX: N76.0 Acute vaginitis (principal)
CPT/HCPCS: 99282